=== PATIENT | female | born 1955 | race Caucasian/White ===

== ENCOUNTER 2019-11-18 09:52 | Outpatient (CLI) | payer MEDICARE, OTHER, SELFPAY ==
--- NOTE | 2019-11-18 09:57 | US_ITS ---
WS: [id number] ULTRASOUND RENAL TECHNIQUE: Ultrasound examination of both kidneys. Technically difficult examination due to body habi tus. CLINICAL INFORMATION: Cystitis COMPARISON: None. FINDINGS: RIGHT: Right kidney is normal in size and appearance. Echogenicity: Normal. Cortical thickness: 1.5 cm; Normal. Hydronephrosis: None. Perinephric fluid: None. Right kidney measures: 8.9 cm x 4.2 cm x 4.4 cm. LEFT: Left kidney is normal in size and appearance. Echogenicity: Normal. Cortical thickness: 1.2 cm; Normal. Hydronephrosis: None. Perinephric fluid: None. Left kidney measures: 10.6 cm x 4.8 cm x 5.1 cm. Normal visualized aorta. Mild diffuse bladder wall thickening can be seen with chronic cystitis US/US renal BI* [id number] IMPRESSION: 1. Normal renal ultrasound 2. Mild diffuse bladder wall thickening can be seen with chronic cystitis.
== END 2019-11-18 09:53 | disposition home or self-care (01) ==
LOC: US 09:54
PROVIDERS: PCP Registered Nurse; Visit Provider Nurse Practitioner Family
DX: N30.20 Other chronic cystitis without hematuria (principal)
CPT/HCPCS: 76770; 81001

== ENCOUNTER → 2019-12-02 09:26 | Outpatient (BNVA) | payer MEDICARE, OTHER, SELFPAY | PROVIDERS: PCP Registered Nurse; Referring Provider Registered Nurse; Visit Provider Specialist | DX: G62.9 Polyneuropathy, unspecified (principal); G11.9 Hereditary ataxia, unspecified; I48.0 Paroxysmal atrial fibrillation | CPT/HCPCS: 99204 ==

== ENCOUNTER → 2020-01-05 10:22 | Outpatient (BNVA) | payer MEDICARE, OTHER, SELFPAY | PROVIDERS: PCP Registered Nurse; Visit Provider Urology | DX: N30.20 Other chronic cystitis without hematuria (principal) | CPT/HCPCS: 81001 ==

== ENCOUNTER 2020-02-06 16:43 | Emergency (ER) | payer MEDICARE, OTHER, SELFPAY ==
[2020-02-06 16:48] VITALS: BP 127/75; PULSE 91; RESP 18; TEMP 37.2; O2SAT 94; BMI 41.8
--- NOTE | 2020-02-06 18:06 | XRR_ITS ---
PROCEDURE INFORMATION: Exam: XR Chest, 1 View Exam date and time: 02/06/2020 6:07 PM Age: 64 years old Clinical indication: Dyspnea; Additional info: SOB TECHNIQUE: Imaging protocol: XR of the chest Views: 1 view. COMPARISON: CR Chest 1 [place] [id number] 04/25/2019 5:09 PM FINDINGS: Lungs: Unremarkable. No consolidation. The pulmonary vascularity is within normal limits. Scattered calcified granulomata are noted. Pleural space: Unremarkable. No pleural effusion. No pneumothorax. Heart/Mediastinum: Unremarkable. No cardiomegaly. Bones/joints: No acute abnormality. XR/XR chest 1V portable [id number] IMPRESSION: No acute findings.
--- NOTE | 2020-02-06 18:07 | W.ED.GENADLT ---
HPI - General Adult General: Chief complaint: General Medical Stated complaint: LOW O2 SATS Time Seen by Provider: 02/06/20 17:29 Source: patient Mode of arrival: EMS Limitations: no limitations History of Present Illness: HPI narrative: Patient was brought in by EMS with concerns of hypoxia. She was apparently in her primary care provider's office today and was hypoxic there. I do not have the number for her oxygen saturations. She was therefore brought here to be evaluated. On discussion with the patient she has no complaints. She is not certain why she is here, she says she was told her blood pressure was high. She is saturating in the mid 90s on room air here in the emergency department and her blood pressure is normal at 122/74. She denies chest pain, says she has occasional shortness of breath. She has had repeated falls and she says she has been falling a lot for a long time. Last fall was yesterday. She denies hitting her head and denies losing consciousness. She denies any pain today. Associated symptoms: Deny headache(s), nausea, rash, palpitations or vomiting Review of Systems General: Reports: 10 or more systems reviewed and unremarkable except in HPI and below Const: Denies: fever(s), chills or body aches Eyes: Denies: change in vision or blurry vision ENMT: Denies: throat pain, enlarged tonsils, odynophagia, hoarseness, mouth pain or swelling of lips/tongue Card: Denies: palpitations, irregular heart rhythm, edema or swelling of feet/ankles Resp: Denies: productive cough or non-productive cough GI: Denies: abdominal pain, nausea or vomiting : Denies: flank pain, difficulty voiding, dysuria, urinary frequency, urinary urgency or urinary hesitancy Musc: Denies: neck pain, back pain or extremity swelling Skin/Breast: Denies: rash, pruritus or erythema Neuro: Denies: headache(s), numbness in extremities or weakness in extremities Endo: Denies: polyuria, polydipsia or tired all the time [facility] ED PFSH: Medical History Atrial fibrillation Chronic cystitis COPD (chronic obstructive pulmonary disease) Diabetes History of leukemia HTN (hypertension) Hypercholesteremia Surgical History History of back surgery Hx of appendectomy Hx of cholecystectomy Hx of sinus surgery Hx of total thyroidectomy Family History Mother CAD (coronary artery disease) Social History Smoking and tobacco status: never smoked Alcohol intake: never Adopted: No Caregiver/support person: No Lives independently: No Marital status: / Current occupational status: retired History of recent travel: No Current gender identity: Female Physical Exam Const: COMMON NORMALS: no acute distress, average body habitus, patient oriented x3, no limitations, healthy appearing, alert and well nourished HENMT: COMMON NORMALS: normocephalic, atraumatic and moist oral mucous membranes HEAD & SCALP: normocephalic and atraumatic Neck/C-Spine: COMMON NORMALS: full ROM, supple, no meningeal signs, no JVD and No carotid bruits Chest: COMMONS NORMALS: normal inspection of the chest and normal palpation of entire chest wall Resp: COMMON NORMALS: normal respiratory effort, No retractions, No use of accessory muscles, clear to auscultation bilaterally and percussion normal AUSCULTATION: clear to auscultation bilaterally PERCUSSION: percussion normal Cardio: COMMON NORMALS: no JVD, regular rate, regular rhythm, S1 normal heart sound present, S2 normal heart sound present, No gallops present (Cardio), No clicks present (Cardio), No murmurs present (Cardio), No rub (Cardio) and Peripheral pulses 2+ throughout RATE: regular rate RHYTHM: regular rhythm HEART SOUNDS: S1 normal heart sound present and S2 normal heart sound present PERIPHERAL PULSES: Peripheral pulses 2+ throughout GI: COMMON NORMALS: Normal to inspection, nondistended, normoactive bowel sounds present, Soft to palpation, non-tender, No hepatosplenomegaly present, no masses and no bruits PALPATION: Yes Soft to palpation and Yes No hepatosplenomegaly present Extremity: COMMON NORMALS: normal to inspection, full ROM, capillary refill normal, no calf tenderness and no pedal edema Neuro: COMMON NORMALS: patient oriented x3 SENSORIUM/ORIENTATION: Yes alert MENINGEAL SIGNS: Yes no meningeal signs Skin: COMMON NORMALS: no wounds, turgor normal, no jaundice, no petechiae and no mottling GENERAL SKIN EXAM: turgor normal OTHER: She has multiple bruises on her lower extremity especially in multiple stages of healing. No tenderness to palpation. No obvious bleeding. Course Reevaluation(s): Reevaluation #1: Discussed her lab and imaging findings with her. Nothing acute to straighten up. Chronic kidney disease. Her oxygen saturations have been great throughout her emergency department stay with no desaturation and no oxygen requirements. Respiratory therapy did a walk test on her on the lowest she got was 94% on room air while walking. She will therefore be discharged with no new orders. She voiced understanding and is in agreement with the plan. Time: 20:16 Vital Signs: Vital signs: Vital Signs Temperature 98.9 F 02/06/20 16:48 Pulse Rate 84 02/06/20 20:37 Respiratory Rate 18 02/06/20 20:37 Blood Pressure 146/87 02/06/20 20:37 Pulse Oximetry 96 02/06/20 20:37 MDM - General Adult MDM Narrative: Medical decision making narrative: Patient with hypoxia in her pcp's office. In the ED she was saturating in the mid to high 90's on room air throughout her ED stay. A walk test showed that she did not desaturate on a 5 minute walk test and saturations remained above 92 during the walk. She is discharged home with no new orders Medical Records: Attestation: I reviewed the patient's medical records. Lab Data: Attestation: I reviewed the patient's lab results. Labs: Lab Results 02/06/20 02/06/20 Range/Units 18:31 18:31 WBC 6.3 (4.0-10.0) 10^3/ uL RBC 4.78 (4.1-5.3) 10^6/u L Hgb 12.7 (11.5-15.3) g/dL Hct 42.0 (37.0-47.0) % MCV 87.9 (81-99) fL MCH 26.6 L (28.0-34.0) pg MCHC 30.2 (30.0-36.0) g/dL RDW 17.1 H (12.1-15.1) % Plt Count 281 (130-400) 10^3/c mm MPV 9.2 (7.4-10.4) fL Neut % (Auto) 66.6 % Lymph % (Auto) 21.6 % Hayes % (Auto) 9.8 % Eos % (Auto) 1.1 % Baso % (Auto) 0.6 % Neut # (Auto) 4.21 (1.8-7.7) 10^3/u L Lymph # (Auto) 1.4 (0.8-4.8) 10^3/u L Hayes # (Auto) 0.6 (0.2-0.9) 10^3/u L Eos # (Auto) 0.1 (0.0-0.8) 10^3/u L Baso # (Auto) 0.0 (0.0-0.1) 10^3/u L Nucleated RBC % (a uto) 0 % Nucleated RBCs # 0.0 /100WBC Sodium 136 (136-145) mmol/L Potassium 3.5 (3.5-5.1) mmol/L Chloride 97 L (98-107) mmol/L Carbon Dioxide 28 (22-29) mmol/L Anion Gap 14.5 (5-19) BUN 25 H (8-23) mg/dL Creatinine 1.5 H (0.5-0.9) mg/dL GFR Calculation 35.0 L (90-130) mL/min Glucose 170 H (65-115) mg/dL Calculated Osmolal ity 283 L (285-295) mOsm/k g Calcium 8.5 (8.5-10.5) mg/dL Total Bilirubin 0.3 (0.15-1.2) mg/dL AST 48 H (0-32) U/L ALT 52 H (0-33) U/L Alkaline Phosphata se 138 H (35-105) IU/L Total Protein 7.9 (6.6-8.7) g/dL Albumin 4.0 (3.5-5.2) g/dL Globulin 3.9 (1.3-4.6) g/dL Imaging Data^: CXR: Radiologist's impression: [address] [address] XRay Report Signed Patient: Elizabeth Malik #: [id number] : 6Acct#:[id number] Age/Sex: 64 / FADM Date: 02/06/20 Loc: ERRoom/Bed: Attending Dr: Ordering Provider/Ordering MD: Teo Fong MD, [facility] [place] Date of Service: 02/06/20 Procedure(s): XR chest 1V portable [id number] Accession Number(s): [id number] Report Number: [id number] PROCEDURE INFORMATION: Exam: XR Chest, 1 View Exam date and time: 02/06/2020 6:07 PM Age: 64 years old Clinical indication: Dyspnea; Additional info: SOB TECHNIQUE: Imaging protocol: XR of the chest Views: 1 view. COMPARISON: CR Chest 1 [place] [id number] 04/25/2019 5:09 PM FINDINGS: Lungs: Unremarkable. No consolidation. The pulmonary vascularity is within normal limits. Scattered calcified granulomata are noted. Pleural space: Unremarkable. No pleural effusion. No pneumothorax. Heart/Mediastinum: Unremarkable. No cardiomegaly. Bones/joints: No acute abnormality. XR/XR chest 1V portable [id number] IMPRESSION: No acute findings. Discharge Plan Discharge Patient Disposition: Home Clinical Impression: Worried well, CKD (chronic kidney disease) stage 3, GFR 30-59 ml/min Condition: Stable Prescriptions: Continued duloxetine [Cymbalta] 20 mg capsule,delayed release(DR/EC) 20 mg PO BID Qty: 180 RF: 2 budesonide-formoterol [Symbicort] 160-4.5 mcg/actuation HFA aerosol inhaler 2 puff INHALATION BID RF: 0 Adult Probiotic 3 billion cell capsule 3,000 mmu cells PO DAILY RF: 0 aspirin [Adult Low Dose Aspirin] 81 mg tablet,delayed release (DR/EC) 81 mg PO DAILY RF: 0 Xarelto 20 mg tablet 20 mg PO DAILY RF: 0 atorvastatin 20 mg tablet 20 mg PO DAILY RF: 0 omeprazole 20 mg capsule,delayed release(DR/EC) 20 mg PO BID RF: 0 fluticasone propionate 50 mcg/actuation spray,suspension 2 spray INTRANASAL DAILY PRN (Reason: Nasal Congestion) RF: 0 albuterol sulfate 90 mcg/actuation aero powdr breath act w/sensor 90 mcg INHALATION Q6H PRN (Reason: Shortness Of Breath) RF: 0 metformin 500 mg tablet 500 mg PO DAILY RF: 0 furosemide 20 mg tablet 40 mg PO QAM RF: 0 amitriptyline 25 mg tablet 150 mg PO DAILY RF: 0 nitrofurantoin monohyd/m-cryst [Macrobid] 100 mg capsule 100 mg PO BID Qty: 60 RF: 2 potassium chloride 20 mEq tablet extended release 20 meq PO DAILY Qty: 90 RF: 0 digoxin [Digox] 125 mcg (0.125 mg) tablet 125 mcg PO DAILY Qty: 60 RF: 2 amiodarone 200 mg tablet 200 mg PO DAILY RF: 0 zafirlukast 20 mg Tablet 20 mg PO BID RF: 0 Discharge Orders: Discharge Order (Routine); Ordered 02/06/20 Ordered By: Teo Fong Referrals: Ritu Allan FNP [Primary Care Provider] - 1-3 days Patient Instructions: Chronic Kidney Disease (ED) Activity Restrictions/Additional Instructions: Return for any new or worsening symptoms. Follow-up with your primary care provider within 3 days. 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
[2020-02-06 18:39] LABS: Basophils % 0.6 %; Eosinophils # 0.1 10^3/uL (0.0-0.8); Eosinophils % 1.1 %; Hemoglobin 12.7 g/dL (11.5-15.3); Lymphocytes # 1.4 10^3/uL (0.8-4.8); Lymphocytes % 21.6 %; Mean Corpuscular HGB Conc 30.2 g/dL (30.0-36.0); Mean Corpuscular Hemoglobin 26.6 pg (28.0-34.0); Mean Corpuscular Volume 87.9 fL (81-99); Mean Platelet Volume 9.2 fL (7.4-10.4); Monocytes # 0.6 10^3/uL (0.2-0.9); Monocytes % 9.8 %; Neutrophils # 4.21 10^3/uL (1.8-7.7); Neutrophils % 66.6 %; Nucleated Red Blood Cells % 0 %; Platelet Count 281 10^3/cmm (130-400); Red Blood Count 4.78 10^6/uL (4.1-5.3); Red Cell Distribution Width 17.1 % (12.1-15.1); White Blood Count 6.3 10^3/uL (4.0-10.0)
[2020-02-06 19:03] LABS: Alanine Aminotransferase 52 U/L (0-33); Alkaline Phosphatase 138 IU/L (35-105); Anion Gap 14.5 (5-19); Aspartate Amino Transferase 48 U/L (0-32); Blood Urea Nitrogen 25 mg/dL (8-23); Calcium 8.5 mg/dL (8.5-10.5); Carbon Dioxide 28 mmol/L (22-29); Chloride 97 mmol/L (98-107); Globulin 3.9 g/dL (1.3-4.6); Glucose 170 mg/dL (65-115); Osmolality Calculated 283 mOsm/kg (285-295); Potassium 3.5 mmol/L (3.5-5.1); Sodium 136 mmol/L (136-145); Total Bilirubin 0.3 mg/dL (0.15-1.2); Total Protein 7.9 g/dL (6.6-8.7)
[2020-02-06 19:50] VITALS: O2SAT 94
[2020-02-06 20:37] VITALS: BP 146/87; PULSE 84; RESP 18; O2SAT 96
== END 2020-02-06 20:40 | disposition home or self-care (01) ==
PROVIDERS: Emergency Provider Family Medicine; PCP Registered Nurse
DX: I12.9 Hypertensive chronic kidney disease with stage 1 through stage 4 chronic kidney disease, or unspecified chronic kidney disease (principal); E11.22 Type 2 diabetes mellitus with diabetic chronic kidney disease; N18.3 Chronic kidney disease, stage 3 (moderate); Z79.82 Long term (current) use of aspirin; I48.91 Unspecified atrial fibrillation; J44.9 Chronic obstructive pulmonary disease, unspecified; Z85.6 Personal history of leukemia
CPT/HCPCS: 12345; 71045; 80053; 85025; 99281; 99283

== ENCOUNTER → 2020-03-11 11:05 | Outpatient (BNVA) | payer MEDICARE, OTHER, SELFPAY | PROVIDERS: PCP Registered Nurse; Visit Provider Urology | DX: N30.20 Other chronic cystitis without hematuria (principal) | CPT/HCPCS: 80053; 81001; 87077; 87086; 87186 ==

== ENCOUNTER 2020-03-23 11:48 | Emergency (ER) | payer MEDICARE, OTHER, SELFPAY ==
[2020-03-23 11:48] VITALS: BP 148/92; PULSE 97; RESP 18; TEMP 37.3; O2SAT 96; BMI 43.0
[2020-03-23 11:55] VITALS: BP 148/92; PULSE 119; RESP 18; O2SAT 94
--- NOTE | 2020-03-23 12:13 | ECG_ITS ---
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 Measurements Intervals [place] Rate: 103 P: [place]: -1 QRS: 24 QRSD: 102 T: 62 QT: 355 QTc: 467 Interpretive Statements ATRIAL FIBRILLATION WITH RAPID VENTRICULAR RESPONSE LOW QRS VOLTAGE IN PRECORDIAL LEADS [QRS DEFLECTION < 1.0 mV IN CHEST LEADS] Compared to ECG 04/26/2019 00:04:20 No significant changes Electronically Signed On 03-23-2020 16:26:12 CDT by Pamela Rehman M.D. [id number]
--- NOTE | 2020-03-23 12:14 | CT_ITS ---
WS: [id number] CT HEAD TECHNIQUE: Noncontrast CT of the head obtained from the skullbase to the vertex. CLINICAL INFORMATION: fall, claosed head injury - on xeralto COMPARISON: CT 7 24,019 DLP: 796.[address] scans at [facility] use at least one of these dose optimization techniques: automat ed exposure control; mA and/or kV adjustment per patient size (includes targeted exams where dose is matched to clinical indication); or iterative reconstruction. FINDINGS: No evidence of intracranial hemorrhage or mass effect. Ventricular system and basal cisterns are beasley nt. Moderate small vessel changes with mild parenchymal volume loss. Advanced cerebellar and vermian atrophy. This is unchanged from previous. No extra-axial fluid collections. No evidence of mass or ma ss effect. . Fluid in the right maxillary sinus. Mastoid air cells are well aerated. Several scalp sebaceous cysts . CT/CT head wo con* [id number] IMPRESSION: 1. No evidence of intracranial hemorrhage or mass effect. 2. Unchanged advanced cerebellar and vermian atrophy 3. Fluid within the right maxillary sinus compatible with sinusitis. Notified Philip Del Toro DO at 03/23/2020 12:51 PM.
[2020-03-23 12:46] LABS: Basophils % 0.8 %; Eosinophils # 0.1 10^3/uL (0.0-0.8); Eosinophils % 1.6 %; Hematocrit 39.8 % (37.0-47.0); Hemoglobin 11.8 g/dL (11.5-15.3); Lymphocytes # 0.8 10^3/uL (0.8-4.8); Lymphocytes % 16.6 %; Mean Corpuscular HGB Conc 29.6 g/dL (30.0-36.0); Mean Corpuscular Hemoglobin 26.3 pg (28.0-34.0); Mean Corpuscular Volume 88.8 fL (81-99); Mean Platelet Volume 9.7 fL (7.4-10.4); Monocytes # 0.5 10^3/uL (0.2-0.9); Monocytes % 9.5 %; Neutrophils % 70.9 %; Nucleated Red Blood Cells % 0 %; Platelet Count 299 10^3/cmm (130-400); Red Blood Count 4.48 10^6/uL (4.1-5.3); White Blood Count 5.1 10^3/uL (4.0-10.0)
[2020-03-23 12:54] VITALS: PULSE 100; RESP 19; O2SAT 95
[2020-03-23 13:09] LABS: Alanine Aminotransferase 59 U/L (0-33); Alkaline Phosphatase 144 IU/L (35-105); Anion Gap 15.9 (5-19); Aspartate Amino Transferase 75 U/L (0-32); Blood Urea Nitrogen 22 mg/dL (8-23); Calcium 8.9 mg/dL (8.5-10.5); Carbon Dioxide 24 mmol/L (22-29); Chloride 104 mmol/L (98-107); Globulin 3.4 g/dL (1.3-4.6); Glomerular Filtration Rate 41.2 mL/min (90-130); Glucose 142 mg/dL (65-115); Osmolality Calculated 294 mOsm/kg (285-295); Potassium 4.9 mmol/L (3.5-5.1); Sodium 139 mmol/L (136-145); Total Bilirubin 0.4 mg/dL (0.15-1.2); Total Protein 7.4 g/dL (6.6-8.7)
--- NOTE | 2020-03-23 13:41 | ED_ITS ---
HPI - Fall General: Chief Complaint: Fall Stated Complaint: Fall/Lac Time Seen by Provider: 03/23/20 11:52 History of Present Illness: HPI Narrative: 64-year-old female presents emergency room with complaint of fall. She fell and hit the back of her head she also hit her left elbow she able to move the arm without any difficulty she does have a small stellate laceration over it she has a small knot on the back of her head she denies loss of consciousness she does take Xarelto. She is not had any vomiting or difficulty with breathing. She lives alone and has had several falls recently. Interestingly scheduled for his CT head today to further evaluate this was to be done as an outpatient. She denies any chest pain or palpitations with the episodes of falls. There was no loss of consciousness. MD complaint: fall Onset (ago): minute(s) Fall from: standing Fall witnessed: no Place fall occurred: home Loss of consciousness: None Prolonged down time: no Symptoms prior to fall: lightheadedness and dizziness Context: history of frequent falls Location of injury: head Location of injury - extremities: Left: arm Associated symptoms-after fall: Reports lightheadedness; Denies abdominal pain, chest pain, confusion, difficulty walking, headache(s), hematuria, neck pain, numbness, short of breath, vertigo or weakness Review of Systems Const: Denies: fever(s), chills, body aches, change in appetite, fatigue or malaise ENMT: Denies: throat pain, ear or mastoid pain, nasal discharge or nasal congestion Card: Reports: lightheadedness; Denies: chest pain Resp: Denies: dyspnea, productive cough or non-productive cough GI: Denies: abdominal pain : Denies: hematuria Musc: Denies: neck pain Skin/Breast: Denies: rash or pruritus Neuro: Denies: headache(s), difficulty walking, vertigo or confusion PFSH ED PFSH: Medical History Atrial fibrillation Chronic cystitis COPD (chronic obstructive pulmonary disease) Diabetes History of leukemia HTN (hypertension) Hypercholesteremia Surgical History History of back surgery Hx of appendectomy Hx of cholecystectomy Hx of sinus surgery Hx of total thyroidectomy Family History Mother CAD (coronary artery disease) Social History Smoking and tobacco status: never smoked Alcohol intake: never Adopted: No Caregiver/support person: No Lives independently: No Marital status: / Current occupational status: retired History of recent travel: No Current gender identity: Female Physical Exam Const: COMMON NORMALS: no acute distress GENERAL APPEARANCE: cooperative and comfortable ORIENTATION/CONSCIOUSNESS: Yes awake, Yes oriented to person, Yes oriented to place and Yes oriented to time HENMT: COMMON NORMALS: normocephalic, hearing grossly normal bilaterally, external ears normal, EAC's normal, TM's normal bilaterally, Normal nasal mucous membranes and turbinates present, moist oral mucous membranes and oropharynx normal HEAD & SCALP: normocephalic NOSE: Normal nasal mucous membranes and turbinates present EXTERNAL EAR: Yes external ears normal EXTERNAL AUDITORY CANAL: EAC's normal TYMPANIC MEMBRANE: TM's normal bilaterally Eye: COMMON NORMALS: Equal, round and reactive pupils present, EOMs intact bilaterally, conjunctivae normal and no scleral icterus CONJUNCTIVA: Yes conjunctivae normal PUPIL: Yes Equal, round and reactive pupils present Neck/C-Spine: COMMON NORMALS: full ROM, no lymphadenopathy, supple and no JVD Lymph: LYMPHATIC: no lymphadenopathy noted and no lymphedema noted Resp: COMMON NORMALS: normal respiratory effort, No retractions, No use of accessory muscles and clear to auscultation bilaterally AUSCULTATION: clear to auscultation bilaterally Cardio: COMMON NORMALS: no JVD, regular rate, regular rhythm and No murmurs present (Cardio) RATE: regular rate RHYTHM: regular rhythm GI: COMMON NORMALS: Soft to palpation and No hepatosplenomegaly present AUSCULTATION: Yes normoactive bowel sounds PALPATION: Yes Soft to palpation, No Tenderness to palpation present (GI), No Guarding due to palpation present (GI) and Yes No hepatosplenomegaly present Neuro: SENSORIUM/ORIENTATION: Yes oriented to person, Yes oriented to place and Yes oriented to time Skin: COMMON NORMALS: no rashes or lesions noted GENERAL SKIN EXAM: no rashes or lesions noted Procedures Laceration Laceration 1: Site: upper extremity Side (If applicable): left Size (cm): 2 Description: stellate Depth: simple, single layer Local Anesthetic: lidocaine 1% and with epi Amount of anesthesia used (mL): 3 Size (cm): other (2) Technique: simple, interrupted Course Vital Signs: Vital signs: Vital Signs Temperature 99.2 F 03/23/20 11:48 Pulse Rate 70 03/23/20 13:53 Respiratory Rate 15 03/23/20 13:53 Blood Pressure 160/80 03/23/20 13:53 Pulse Oximetry 95 03/23/20 13:53 MDM - Fall MDM Narrative: Medical decision making narrative: Imaging negative. Laceration repaired. Labs reviewed. We will go ahead and discharge patient home for further work-up for her episodes of falling through outpatient. Lab Data: Labs: Lab Results 03/23/20 03/23/20 Range/Units 12:33 12:33 WBC 5.1 (4.0-10.0) 10^3/ uL RBC 4.48 (4.1-5.3) 10^6/u L Hgb 11.8 (11.5-15.3) g/dL Hct 39.8 (37.0-47.0) % MCV 88.8 (81-99) fL MCH 26.3 L (28.0-34.0) pg MCHC 29.6 L (30.0-36.0) g/dL RDW 18.0 H (12.1-15.1) % Plt Count 299 (130-400) 10^3/c mm MPV 9.7 (7.4-10.4) fL Neut % (Auto) 70.9 % Lymph % (Auto) 16.6 % Mineral % (Auto) 9.5 % Eos % (Auto) 1.6 % Baso % (Auto) 0.8 % Neut # (Auto) 3.60 (1.8-7.7) 10^3/u L Lymph # (Auto) 0.8 (0.8-4.8) 10^3/u L Mineral # (Auto) 0.5 (0.2-0.9) 10^3/u L Eos # (Auto) 0.1 (0.0-0.8) 10^3/u L Baso # (Auto) 0.0 (0.0-0.1) 10^3/u L Nucleated RBC % (a uto) 0 % Nucleated RBCs # 0.0 /100WBC Sodium 139 (136-145) mmol/L Potassium 4.9 (3.5-5.1) mmol/L Chloride 104 (98-107) mmol/L Carbon Dioxide 24 (22-29) mmol/L Anion Gap 15.9 (5-19) BUN 22 (8-23) mg/dL Creatinine 1.3 H (0.5-0.9) mg/dL GFR Calculation 41.2 L (90-130) mL/min Glucose 142 H (65-115) mg/dL Calculated Osmolal ity 294 (285-295) mOsm/k g Calcium 8.9 (8.5-10.5) mg/dL Total Bilirubin 0.4 (0.15-1.2) mg/dL AST 75 H (0-32) U/L ALT 59 H (0-33) U/L Alkaline Phosphata se 144 H (35-105) IU/L Total Protein 7.4 (6.6-8.7) g/dL Albumin 4.0 (3.5-5.2) g/dL Globulin 3.4 (1.3-4.6) g/dL Discharge Plan Discharge Patient Disposition: Home Clinical Impression: Fall, Laceration of elbow, left Condition: Stable Prescriptions: No Action duloxetine [Cymbalta] 20 mg capsule,delayed release(DR/EC) 20 mg PO BID Qty: 180 RF: 2 sulfamethoxazole-trimethoprim 800-160 mg tablet 1 tab PO BID Qty: 60 RF: 2 budesonide-formoterol [Symbicort] 160-4.5 mcg/actuation HFA aerosol inhaler 2 puff INHALATION BID RF: 0 Adult Probiotic 3 billion cell capsule 3,000 mmu cells PO DAILY RF: 0 aspirin [Adult Low Dose Aspirin] 81 mg tablet,delayed release (DR/EC) 81 mg PO DAILY RF: 0 Xarelto 20 mg tablet 20 mg PO DAILY RF: 0 atorvastatin 20 mg tablet 20 mg PO DAILY RF: 0 omeprazole 20 mg capsule,delayed release(DR/EC) 20 mg PO BID RF: 0 fluticasone propionate 50 mcg/actuation spray,suspension 2 spray INTRANASAL DAILY PRN (Reason: Nasal Congestion) RF: 0 albuterol sulfate 90 mcg/actuation aero powdr breath act w/sensor 90 mcg INHALATION Q6H PRN (Reason: Shortness Of Breath) RF: 0 metformin 500 mg tablet 500 mg PO DAILY RF: 0 furosemide 20 mg tablet 40 mg PO QAM RF: 0 amitriptyline 25 mg tablet 150 mg PO DAILY RF: 0 potassium chloride 20 mEq tablet extended release 20 meq PO DAILY Qty: 90 RF: 0 digoxin [Digox] 125 mcg (0.125 mg) tablet 125 mcg PO DAILY Qty: 60 RF: 2 amiodarone 200 mg tablet 200 mg PO DAILY RF: 0 zafirlukast 20 mg Tablet 20 mg PO BID RF: 0 Discharge Orders: Discharge Order (Routine); Ordered 03/23/20 Ordered By: Philip Del Toro Referrals: Ritu Allan FNP [Primary Care Provider] - Discharge Diet: Usual diet Discharge Activity: Increase activity as tolerated Activity Restrictions/Additional Instructions: Change wound and put topical [id number] antibiotic ointment on once daily sutures out in 10 days. 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
[2020-03-23 13:53] VITALS: BP 160/80; PULSE 70; RESP 15; O2SAT 95
== END 2020-03-23 13:54 | disposition home or self-care (01) ==
PROVIDERS: Emergency Provider Family Medicine; PCP Registered Nurse
DX: S51.012A Laceration without foreign body of left elbow, initial encounter (principal); Z79.82 Long term (current) use of aspirin; Z79.84 Long term (current) use of oral hypoglycemic drugs; I48.91 Unspecified atrial fibrillation; J44.9 Chronic obstructive pulmonary disease, unspecified; E11.9 Type 2 diabetes mellitus without complications; I10 Essential (primary) hypertension; Z85.6 Personal history of leukemia; W19.XXXA Unspecified fall, initial encounter
CPT/HCPCS: 12001; 12345; 70450; 80053; 85025; 93005; 99282; 99283

== ENCOUNTER 2020-04-13 15:50 | Outpatient (CLI) | payer MEDICARE, OTHER, SELFPAY ==
--- NOTE | 2020-04-13 16:21 | MR_ITS ---
WS: [id number] MRI HEAD WITHOUT CONTRAST TECHNIQUE: Sagittal T1, T2 axial, T2 axial FLAIR, axial and coronal T1 images, axial susceptibility w eighted imaging, axial diffusion weighted images, and coronal T2 images were obtained. CLINICAL INFORMATION: FOCAL NEUROLOGICAL DEFICIT/ DIFFICULTY WITH SPEECH COMPARISON: CT March 23, 2020 FINDINGS: No evidence of restricted diffusion to suggest acute ischemia. Ventricular system and basal cisterns are patent. Moderate small vessel changes with mild hemispheric parenchymal volume loss. Small vessel changes in the brennon. Advanced asymmetric atrophy involving the cerebellum and cerebellar vermis. Mil d mucosal thickening right mastoid air cells. Moderate mucosal thickening right maxillary sinus. Normal vascular flow voids at the skull base. No extra-axial fluid collections. No hemosiderin on the susceptibly weighted images. Normal optic chiasm and pituitary infundibulum. Temporal lobes and hippocampal formations are normal in appearance. Normal cavernous sinuses and Meckel's cave. Incidental sebaceous cysts in the scalp. MR/MR head wo con* [id number] IMPRESSION: 1. No evidence of restricted diffusion to suggest acute ischemia. 2. Moderate small vessel changes with mild hemispheric parenchymal volume loss . 3. Unchanged advanced asymmetric cerebellar and vermian atrophy. This is simil ar in appearance dating back to 2009. 4. Mucosal thickening right maxillary sinus and Mastoid air cells. 5. Mild symmetric atrophy involving the temporal lobes and hippocampal formati ons. No asymmetric hippocampal atrophy.
== END 2020-04-13 15:51 | disposition home or self-care (01) ==
LOC: RADSHAW 15:54
PROVIDERS: PCP Family Medicine; Visit Provider Family Medicine
DX: R29.818 Other symptoms and signs involving the nervous system (principal); R47.9 Unspecified speech disturbances; G31.9 Degenerative disease of nervous system, unspecified
CPT/HCPCS: 70551

== ENCOUNTER → 2020-04-21 13:49 | Outpatient (BNVA) | payer MEDICARE, OTHER, SELFPAY | PROVIDERS: PCP Family Medicine; Visit Provider Specialist | DX: G62.9 Polyneuropathy, unspecified (principal); G11.9 Hereditary ataxia, unspecified; G31.84 Mild cognitive impairment of uncertain or unknown etiology | CPT/HCPCS: 99214 ==

== ENCOUNTER → 2020-04-28 15:40 | Outpatient (BNVA) | payer MEDICARE, OTHER, SELFPAY | PROVIDERS: PCP Family Medicine; Visit Provider Urology | DX: N30.20 Other chronic cystitis without hematuria (principal) | CPT/HCPCS: 81003 ==

== ENCOUNTER 2020-06-03 09:47 | Outpatient (CLI) | payer MEDICARE, OTHER, SELFPAY ==
--- NOTE | 2020-06-03 09:56 | USCV_ITS ---
Elizabeth Malik Age: 64 Gender: F : 1955 Exam Date: 06/03/2020 10:18 Ordering Phys: Sherron Guerrero Technologist: Sherrie Hidalgo [place]am [place] [facility] [place] Indication: right leg pain w/swelling. Freq falls, amelia's sign present HISTORY: Lower extremity swelling. Lower extremity pain. PROCEDURES: Venous duplex imaging was performed in only the right lower extremity. The following venous structures were evaluated: common femoral vein, profunda vein, proximal portion of the greater saphenous vein, superficial femoral vein, and the popliteal vein. In addition, the posterior tibial veins were evaluated. In addition, the posterior tibial and peroneal trunk were evaluated. FINDINGS: No evidence of DVT seen in any vessel visualized at this time. Fluid seen in right pop fossa CONCLUSIONS No evidence of right lower extremity DVT. Small amount of fluid/ edema in the popliteal fossa. Craig Benedict MD (Electronically Signed) Final Date: 03 June 2020 14:20 S
== END 2020-06-03 09:48 | disposition home or self-care (01) ==
LOC: RAD 09:50
PROVIDERS: PCP Family Medicine; Visit Provider Registered Nurse
DX: M79.604 Pain in right leg (principal); M79.89 Other specified soft tissue disorders; R29.6 Repeated falls; R09.89 Other specified symptoms and signs involving the circulatory and respiratory systems; R60.0 Localized edema
CPT/HCPCS: 93971

== ENCOUNTER 2020-06-22 12:22 | Outpatient (CLI) | payer MEDICARE, OTHER, SELFPAY ==
--- NOTE | 2020-06-22 | USCV_ITS ---
Elizabeth Malik Age: 64 Gender: F : 1955 Exam Date: 06/22/2020 12:57 Ordering Phys: Sherron Guerrero Technologist: Rubén Mireles Exam Location: [facility] [place] Indication: ?PAD/PAIN OF RIGHT LOWER EXT/FREQ FALLS RIGHT LEFT Brachial 182.00 mmHg Brachial 156.00 mmHg Pressure (mmHg) Waveform Pressure (mmHg) Waveform 158.00 Below Knee 196.00 180.00 DEVELOPMENT TECHNICAL LEAD 202.00 183.00 DPA 160.00 1.01 Ankle/Brachial Index 0.88 132.00 Pre-Exercise Toe Pressure 121.00 0.73 Pre-Exercise Toe/Brachial Index 0.66 FINDINGS BILAT THIGH PRESSURES >200 COULD NOT CALCULATE Normal resting CASSIE and TBI on the right side Slightly diminished resting CASSIE and TBI on the left side CONCLUSIONS 1. Features of mild peripheral artery disease on the left side 2. No significant arterial obstruction on the right side No similar previous studies are available for comparison Dr Akilah Helms MD [facility] Edited by: DAHIANA Branch Lead (Electronically Signed) Final Date: 22 June 2020 17:50 Amended: 23 June 2020 07:33 C
== END 2020-06-22 12:23 | disposition home or self-care (01) ==
LOC: RAD 12:35
PROVIDERS: PCP Family Medicine; Visit Provider Registered Nurse
DX: M79.604 Pain in right leg (principal); R29.6 Repeated falls; R23.3 Spontaneous ecchymoses
CPT/HCPCS: 93923

== ENCOUNTER → 2020-06-23 12:12 | Outpatient (BNVA) | payer MEDICARE, OTHER, SELFPAY | PROVIDERS: PCP Family Medicine; Visit Provider Internal Medicine Cardiovascular Disease | DX: I10 Essential (primary) hypertension (principal); I48.0 Paroxysmal atrial fibrillation | CPT/HCPCS: 80053; 80162 ==

== ENCOUNTER → 2020-09-22 11:37 | Outpatient (BNVA) | payer MEDICARE, OTHER, SELFPAY | PROVIDERS: PCP Family Medicine; Visit Provider Specialist | DX: G62.9 Polyneuropathy, unspecified (principal); G11.9 Hereditary ataxia, unspecified; G31.84 Mild cognitive impairment of uncertain or unknown etiology | CPT/HCPCS: 99213 ==

== ENCOUNTER 2020-12-21 14:04 | Emergency (ER) | payer MEDICARE, OTHER, SELFPAY ==
[2020-12-21 14:26] VITALS: BP 144/80; PULSE 100; RESP 16; TEMP 37.2; O2SAT 96; BMI 36.0
--- NOTE | 2020-12-21 14:50 | ED_ITS ---
HPI - Fall General: Chief Complaint: Fall Stated Complaint: fall, shoulder pain Time Seen by Provider: 12/21/20 14:38 History of Present Illness: HPI Narrative: Patient is a 65-year-old female comes to the ED after having a fall. Patient says fall occurred on Sunday. She reports losing her balance and falling down on her left side. She endorses hitting her head on the ground but no loss of consciousness. She states she does have some left-sided neck pain. Her main complaint is left shoulder pain since fall. Now she has limited range of motion in her left arm due to pain. She also describes having some left elbow pain as well. Patient is on a blood thinner and takes Tylenol for pain. Denies any neurological symptoms. Associated symptoms-after fall: Reports neck pain; Denies abdominal pain, chest pain, headache(s) or hematuria Review of Systems Const: Denies: fever(s), chills or fatigue Eyes: Denies: change in vision or eye discomfort ENMT: Denies: throat pain, odynophagia, nasal discharge or nasal congestion Card: Denies: chest pain, palpitations, edema, swelling of feet/ankles, dyspnea on exertion or orthopnea Resp: Denies: dyspnea, productive cough or non-productive cough GI: Denies: abdominal pain, nausea, vomiting, diarrhea, constipation or hematochezia : Denies: flank pain, dysuria or hematuria Musc: Reports: neck pain and extremity pain (left shoulder and left elbow); Denies: back pain or extremity swelling Skin/Breast: Denies: rash or new lesions Neuro: Denies: headache(s), numbness in extremities or weakness in extremities [facility] ED PFSH: Medical History Atrial fibrillation Chronic cystitis COPD (chronic obstructive pulmonary disease) Diabetes History of leukemia HTN (hypertension) Hypercholesteremia Surgical History History of back surgery Hx of appendectomy Hx of cholecystectomy Hx of sinus surgery Hx of total thyroidectomy Family History Mother CAD (coronary artery disease) Social History Smoking and tobacco status: never smoked Alcohol intake: never Marital status: / Current occupational status: retired History of recent travel: No Physical Exam Const: COMMON NORMALS: no acute distress, patient oriented x3 and alert GENERAL APPEARANCE: cooperative and comfortable HENMT: COMMON NORMALS: normocephalic HEAD & SCALP: normocephalic MOUTH: Normal oral and palatal mucosa present THROAT: posterior oropharynx normal and uvula midline Eye: COMMON NORMALS: Equal, round and reactive pupils present and EOMs intact bilaterally PUPIL: Yes Equal, round and reactive pupils present Neck/C-Spine: COMMON NORMALS: supple GENERAL: Yes normal visual inspection CERVICAL SPINE: Yes cervical ROM normal, Yes Paracervical muscle tenderness left and Yes Trapezius muscle tenderness left Resp: COMMON NORMALS: normal respiratory effort, No retractions, No use of accessory muscles and clear to auscultation bilaterally AUSCULTATION: clear to auscultation bilaterally Cardio: COMMON NORMALS: regular rate, regular rhythm, S1 normal heart sound present, S2 normal heart sound present, No gallops present (Cardio), No clicks present (Cardio), No murmurs present (Cardio) and Peripheral pulses 2+ throughout RATE: regular rate RHYTHM: regular rhythm HEART SOUNDS: S1 normal heart sound present and S2 normal heart sound present PERIPHERAL PULSES: Peripheral pulses 2+ throughout GI: COMMON NORMALS: Normal to inspection, nondistended, normoactive bowel sounds present, Soft to palpation, non-tender and no masses PALPATION: Yes Soft to palpation : COMMON NORMALS: Yes no CVA tenderness BLADDER/KIDNEY EXAM: Yes no CVA tenderness Back/Pelvis: COMMON NORMALS: no CVA tenderness Extremity: LEFT UPPER EXTREMITY: Yes shoulder joint Left shoulder joint: Yes inspection (No visible deformity noted.), Yes palpation (Tenderness over the humeral head region of shoulder), Yes ROM (Limited range of motion especially ab duction) and Yes neurovascular exam (Intact) Neuro: COMMON NORMALS: patient oriented x3, CN's II-XII intact bilaterally, m oves all extremities, no focal motor deficits and no sensory deficits noted SENSORIUM/ORIENTATION: Yes alert SPEECH: speech normal Skin: GENERAL SKIN EXAM: dry skin Course Vital Signs: Vital signs: Vital Signs Temperature 98.9 F 12/21/20 14:26 Pulse Rate 80 12/21/20 16:16 Respiratory Rate 18 12/21/20 16:16 Blood Pressure 156/104 12/21/20 16:16 Pulse Oximetry 96 12/21/20 16:16 MDM - Fall MDM Narrative: Medical decision making narrative: pt had a fall and now has neck pain, left shoulder pain and left elbow pain. pt is on blood thinner and she reports hitting her head but did not have LOC. pt's neuro exam is benign. she has limited ROM in left shoulder due to pain. NV intact. XR of elbow and shoulder showed no acute fracture or finding. CT of head and CT cervical spine show no acute findings. pt diagnosed with left shoulder pain, left side neck pain after fall. she was dc with a shoulder sling and told to follow up with pcp in 7-10 days for reevaluation. return to ed precautions given. pt understood and agreed with plan. Imaging Data^: CT Head: Attestation: I personally reviewed and interpreted this imaging study as foll ows: Radiologist's impression: [address] [address] [address] Scan Report Signed Patient: Elizabeth Malik Unit #: [id number] : 1955 Age/Sex: 65 / F ADM Date: 12/21/20 Loc: ER Room/Bed: Attending Dr: Ordering Provider/Ordering MD: Juanjose Daly Date of Service: 12/21/20 Procedure(s): CT head wo con* [id number] Accession Number(s): [id number] Report Number: [id number] PROCEDURE INFORMATION: Exam: CT Head Without Contrast Exam date and time: 12/21/2020 2:57 PM Age: 65 years old Clinical indication: Injury or trauma; Fall; Blunt trauma (contusions or hematomas); Injury date: 10 days ago; Additional info: Fall and hit head. PT on blood thinners TECHNIQUE: Imaging protocol: Computed tomography of the head without contrast. Radiation optimization: All CT scans at this facility use at least one of these dose optimization techniques: automated exposure control; mA and/or kV adjustment per patient size (includes targeted exams where dose is matched to clinical indication); or iterative reconstruction. COMPARISON: MR head wo con* [id number] 04/13/2020 4:[address] head without contrast 03/23/2020 RADIATION DOSE METRICS: Total DLP (mGy-cm): 766.39 FINDINGS: Brain: No hemorrhage. Moderate diffuse cerebral atrophy with areas of focal low attenuation within the subcortical and deep white matter tracts consistent with chronic small vessel ischemic disease. No mass effect. Redemonstrated findings of advanced cerebellar and vermian atrophy, similar in appearance to previous examinations. Cerebral ventricles: No ventriculomegaly. Paranasal sinuses: Air-fluid level at the right maxillary sinus. The rest of the paranasal sinuses appear well pneumatized. Mastoid air cells: Visualized mastoid air cells are well aerated. Bones/joints: Unremarkable. No acute fracture. Soft tissues: Appearance of several sebaceous cysts within the subcutaneous tissues predominantly within the left posterolateral scalp. CT/CT head wo con* [id number] IMPRESSION: 1. Stable exam, no acute intracranial abnormality. 2. Right maxillary sinusitis. Radiation Dose CTDIVOL = (mGy): DLP = 766.39 (mGy-cm) Dictated By: Familia Mi DO Signed By: Familia Mi DO Signed Date/Time: 12/21/20 1611 DD/ [address]: Attestation: I personally reviewed and interpreted this imaging study as follows: Radiologist's impression: [address] Find Patient RAD - Elizabeth Malik 65 F 1955 ACTIVITY DATE EXAM STATUS AUTHOR 12/21/20 14:57 Signed Familia Mi 12/21/20 14:57 Signed Denise Garcia 12/21/20 14:57 Signed Familia Mi 12/21/20 14:57 Signed Denise Garcia [address] [id number] Scan ReportSigned Patient: Elizabeth Malik EUnit #: [id number]: [id number]#:[id number]/Sex: 65 / FADM Date: 12/21/20Loc: ERRoom/Bed:Attending Dr: Ordering Provider/Ordering MD: Juanjose Daly Date of Service: 12/21/20 Procedure(s): CT cervical spin wo con* [id number] Accession Number(s): [id number] Report Number: [id number] PROCEDURE INFORMATION: Exam: CT Cervical Spine Without Contrast Exam date and time: 12/21/2020 2:57 PM Age: 65 years old Clinical indication: Injury or trauma; Fall; Blunt trauma; Injury date: 10 days ago; Additional info: Fall and hit head, neck pain TECHNIQUE: Imaging protocol: Computed tomography images of the cervical spine without contrast. Radiation optimization: All CT scans at this facility use at least one of these dose optimization techniques: automated exposure control; mA and/or kV adjustment per patient size (includes targeted exams where dose is matched to clinical indication); or iterative reconstruction. COMPARISON: MR head wo con* [id number] 04/13/2020 4:36 PM RADIATION DOSE METRICS: Total DLP (mGy-cm): 762.82 FINDINGS: Bones/joints: No acute fracture with normal alignment of the cervical spine. Mild to moderate facet arthropathy asymmetrically pronounced within the left C3 through C6 levels. Uncovertebral hypertrophy noted at C5-C6 and C6-C7. Discs/Spinal canal/Neural foramina: See Bones/joints finding. Thyroid: Sequela of left hemithyroidectomy. Lungs: Lung apices are normal. Soft tissues: Unremarkable. CT/CT cervical spin wo con* [id number] IMPRESSION: No acute osseous abnormalities of the cervical spine. Radiation Dose CTDIVOL = (mGy): DLP = 762.82 (mGy-cm) Dictated By:Familia Mi DOSigned By:Familia Mi DOSigned Date/Time:12/21/20 1614DD/ 1613 Xray Ortho: Attestation: I personally reviewed and interpreted this imaging study as follows: Radiologist's impression: Elizabeth Malik 65 F [address] [id number] ReportSigned Patient: Pao Maliklotte NEELginarobina #: [id number]: 1955cct#:[id number]/Sex: 65 / FADM Date: 12/21/20Loc: ERRoom/ Bed:Attending Dr: Ordering Provider/Ordering MD: Juanjose Daly Date of Service: 12/21/20 Procedure(s): XR elbow LT min 3V* [id number] Accession Number(s): [id number] Report Number: [id number] WS: [id number] LEFT ELBOW: 3 VIEW(S) TECHNIQUE: AP, oblique and lateral. HISTORY: left elbow pain after fall COMPARISON: None available. No acute fractures or dislocation. No joint effusion. Small calcific or osseous densities over the lateral humeral epicondyle. Probably from prior epicondylitis. XR/XR elbow LT min 3V* [id number] IMPRESSION: No acute LEFT elbow fracture. Dictated By:Denise Garcia DOSigned By:Denise Garcia DOSigned Date/Time:12/21/20 152DD/ [address] [id number] ReportSigned Patient: Elizabeth Malik #: [id number]: 1955cct#:[id number]/Sex: 65 / FADM Date: 12/21/20Loc: ERRoom/Bed:Attending Dr: Ordering Provider/Ordering MD: Juanjose Daly Date of Service: 12/21/20 Procedure(s): XR shoulder LT min 2V* [id number] Accession Number(s): [id number] Report Number: [id number] WS: [id number] LEFT SHOULDER: 3 VIEW(S) TECHNIQUE: Internal and external rotation with Y view. HISTORY: left shoulder pain after fall COMPARISON: None available. No fracture identified. Mild narrowing of the AC joint. No dislocation. Glenohumeral and AC joints are unremarkable. XR/XR shoulder LT min 2V* [id number] IMPRESSION: Mild degenerative changes at the AC joint. No fracture seen radiographically. Dictated By:Denise Garcia DOSigned By:Dneise Garcia DOSigned Date/Time:12/21/20 1527DD/ 152 Discharge Plan Discharge Patient Disposition: Home Clinical Impression: Neck pain on left side Fall as cause of accidental injury at home as place of occurrence Qualifiers: Encounter type: initial encounter Qualified Code(s): W19.XXXA - Unspecified fall, initial encounter Left shoulder pain Qualifiers: Chronicity: acute Qualified Code(s): M25.512 - Pain in left shoulder Condition: Stable Prescriptions: New cyclobenzaprine 5 mg tablet 5 mg PO BID PRN (Reason: muscle spasm) Qty: 20 RF: 0 No Action duloxetine [Cymbalta] 20 mg capsule,delayed release(DR/EC) 20 mg PO BID Qty: 180 RF: 2 tramadol 50 mg tablet 100 mg PO TID PRNRF: 0 digoxin [Digox] 125 mcg (0.125 mg) tablet 62.5 mcg PO DAILY RF: 0 metoprolol succinate 25 mg tablet extended release 24 hr 25 mg PO DAILY Qty: 90 RF: 1 potassium chloride 20 mEq tablet extended release 10 meq PO DAILY PRNRF: 0 levothyroxine [Synthroid] 112 mcg tablet 112 mcg PO DAILY RF: 0 budesonide-formoterol [Symbicort] 160-4.5 mcg/actuation HFA aerosol inhaler 2 puff INHALATION BID RF: 0 Adult Probiotic 3 billion cell capsule 3,000 mmu cells PO DAILY RF: 0 aspirin [Adult Low Dose Aspirin] 81 mg tablet,delayed release (DR/EC) 81 mg PO DAILY RF: 0 Xarelto 20 mg tablet 20 mg PO DAILY RF: 0 atorvastatin 20 mg tablet 20 mg PO DAILY RF: 0 omeprazole 20 mg capsule,delayed release(DR/EC) 20 mg PO BID RF: 0 fluticasone propionate 50 mcg/actuation spray,suspension 2 spray INTRANASAL DAILY PRN (Reason: Nasal Congestion) RF: 0 albuterol sulfate 90 mcg/actuation aero powdr breath act w/sensor 90 mcg INHALATION Q6H PRN (Reason: Shortness Of Breath) RF: 0 metformin 500 mg tablet 500 mg PO DAILY RF: 0 furosemide 20 mg tablet 40 mg PO QAM PRNRF: 0 mirtazapine 15 mg tablet 15 mg PO DAILY RF: 0 DME: [facility] 1 ea .Route DAILY Qty: 1 RF: 0 zafirlukast 20 mg Tablet 20 mg PO BID RF: 0 Discharge Orders: Discharge ED (Routine); Ordered 12/21/20 Ordered By: Juanjose Daly Referrals: Poonam Cavazos DO [Primary Care Provider] - Discharge Diet: Regular Discharge Activity: Increase activity as tolerated Patient Instructions: Fall Prevention (ED) Activity Restrictions/Additional Instructions: Follow-up with medical provider as directed in 5-7 days for reevaluation. Continue taking all home medications as previously prescribed. Take vsvt-jny-nvadcil Tylenol for any pain. Return to the ER or your medical provider if condition worsens. Please read and understand discharge instructions. Thank you for choosing [facility] for your healthcare needs today. Please realize this is an emergency room and that we are providing you with a medical screening exam and this may not be complete and all inclusive of all the testing and or work up that you may need to determine your ailment or severity of your illness. It is very important that you follow up as instructed or that you return to the Emergency Department should you have concerns or if your condition changes or worsens in any way. Coding Level of Care Code ED [employer] for Anselmo Rodgers Exam Comprehensive
--- NOTE | 2020-12-21 14:57 | CTR_ITS ---
PROCEDURE INFORMATION: Exam: CT Head Without Contrast Exam date and time: 12/21/2020 2:57 PM Age: 65 years old Clinical indication: Injury or trauma; Fall; Blunt trauma (contusions or hematomas); Injury date: 10 days ago; Additional info: Fall and hit head. PT on blood thinners TECHNIQUE: Imaging protocol: Computed tomography of the head without contrast. Radiation optimization: All CT scans at this facility use at least one of these dose optimization techniques: automated exposure control; mA and/or kV adjustment per patient size (includes targeted exams where dose is matched to clinical indication); or iterative reconstruction. COMPARISON: MR head wo con* [id number] 04/13/2020 4:[address] head without contrast 03/23/2020 RADIATION DOSE METRICS: Total DLP (mGy-cm): 766.39 FINDINGS: Brain: No hemorrhage. Moderate diffuse cerebral atrophy with areas of focal low attenuation within the subcortical and deep white matter tracts consistent with chronic small vessel ischemic disease. No mass effect. Redemonstrated findings of advanced cerebellar and vermian atrophy, similar in appearance to previous examinations. Cerebral ventricles: No ventriculomegaly. Paranasal sinuses: Air-fluid level at the right maxillary sinus. The rest of the paranasal sinuses appear well pneumatized. Mastoid air cells: Visualized mastoid air cells are well aerated. Bones/joints: Unremarkable. No acute fracture. Soft tissues: Appearance of several sebaceous cysts within the subcutaneous tissues predominantly within the left posterolateral scalp. CT/CT head wo con* [id number] IMPRESSION: 1. Stable exam, no acute intracranial abnormality. 2. Right maxillary sinusitis. Radiation Dose CTDIVOL = (mGy): DLP = 766.39 (mGy-cm)
--- NOTE | 2020-12-21 14:57 | CTR_ITS ---
PROCEDURE INFORMATION: Exam: CT Cervical Spine Without Contrast Exam date and time: 12/21/2020 2:57 PM Age: 65 years old Clinical indication: Injury or trauma; Fall; Blunt trauma; Injury date: 10 days ago; Additional info: Fall and hit head, neck pain TECHNIQUE: Imaging protocol: Computed tomography images of the cervical spine without contrast. Radiation optimization: All CT scans at this facility use at least one of these dose optimization techniques: automated exposure control; mA and/or kV adjustment per patient size (includes targeted exams where dose is matched to clinical indication); or iterative reconstruction. COMPARISON: MR head wo con* [id number] 04/13/2020 4:36 PM RADIATION DOSE METRICS: Total DLP (mGy-cm): 762.82 FINDINGS: Bones/joints: No acute fracture with normal alignment of the cervical spine. Mild to moderate facet arthropathy asymmetrically pronounced within the left C3 through C6 levels. Uncovertebral hypertrophy noted at C5-C6 and C6-C7. Discs/Spinal canal/Neural foramina: See Bones/joints finding. Thyroid: Sequela of left hemithyroidectomy. Lungs: Lung apices are normal. Soft tissues: Unremarkable. CT/CT cervical spin wo con* [id number] IMPRESSION: No acute osseous abnormalities of the cervical spine. Radiation Dose CTDIVOL = (mGy): DLP = 762.82 (mGy-cm)
--- NOTE | 2020-12-21 14:57 | XR_ITS ---
WS: [id number] LEFT SHOULDER: 3 VIEW(S) TECHNIQUE: Internal and external rotation with Y view. HISTORY: left shoulder pain after fall COMPARISON: None available. No fracture identified. Mild narrowing of the AC joint. No dislocation. Glenohumeral and AC joints are unremarkable. XR/XR shoulder LT min 2V* [id number] IMPRESSION: Mild degenerative changes at the AC joint. No fracture seen radiographically.
--- NOTE | 2020-12-21 14:57 | XR_ITS ---
WS: [id number] LEFT ELBOW: 3 VIEW(S) TECHNIQUE: AP, oblique and lateral. HISTORY: left elbow pain after fall COMPARISON: None available. No acute fractures or dislocation. No joint effusion. Small calcific or osseous densities over the lateral humeral epicondyle. Probably from prior epicondy litis. XR/XR elbow LT min 3V* [id number] IMPRESSION: No acute LEFT elbow fracture.
[2020-12-21] MEDS: acetaminophen 325 mg Tablet 650 MG PO (15:05)
[2020-12-21 16:16] VITALS: BP 156/104; PULSE 80; RESP 18; O2SAT 96
== END 2020-12-21 16:31 | disposition home or self-care (01) ==
PROVIDERS: Emergency Provider Physician Assistant; PCP Family Medicine
DX: M25.512 Pain in left shoulder (principal); M25.522 Pain in left elbow; I48.91 Unspecified atrial fibrillation; J44.9 Chronic obstructive pulmonary disease, unspecified; E11.9 Type 2 diabetes mellitus without complications; I10 Essential (primary) hypertension; E78.00 Pure hypercholesterolemia, unspecified; Z79.01 Long term (current) use of anticoagulants; Z79.84 Long term (current) use of oral hypoglycemic drugs
CPT/HCPCS: 70450; 72125; 73030; 73080; 99283

== ENCOUNTER 2021-05-24 08:26 | Outpatient (CLI) | payer MEDICARE, OTHER, SELFPAY ==
--- NOTE | 2021-05-24 08:37 | MM_ITS ---
WS: [id number] BILATERAL DIGITAL SCREENING MAMMOGRAPHY WITH CAD CLINICAL INFORMATION: SCREENING HISTORY: Screening mammogram. No current complaints. COMPARISON: December 02, 2018 TECHNIQUE: Bilateral CC and MLO views. FINDINGS: Scattered fibroglandular densities bilaterally. Increasing asymmetric density upper outer left breast best seen on the cc view measuring 8 mm. This is increased from previous. Recommend left diagnostic mammography and ultrasound for further evaluation. Punctate and lucent centered calcifications Right breast is unremarkable and unchanged. MM/[place] [id number] IMPRESSION: BI-RADS: 0-Incomplete: Need additional imaging evaluation FOLLOW UP: Need Additional Imaging RECOMMEND LEFT DIAGNOSTIC MAMMOGRAPHY AND ULTRASOUND FOR FURTHER EVALUATION
== END 2021-05-24 08:27 | disposition home or self-care (01) ==
LOC: RADSHAW 08:36
PROVIDERS: PCP Family Medicine; Visit Provider Family Medicine
DX: Z12.31 Encounter for screening mammogram for malignant neoplasm of breast (principal)
CPT/HCPCS: 77067

== ENCOUNTER 2021-05-30 12:09 | Observation (INO) | payer MEDICARE, OTHER, SELFPAY ==
[2021-05-30] VITALS (12 sets, daily range): BP systolic 104–179; BP diastolic 66–130; PULSE 76–128; RESP 21–33; TEMP 36.6–37.8; O2SAT 90–98; BMI 36.0
--- NOTE | 2021-05-30 12:12 | W.ED.GENADLT ---
HPI - General Adult General: Chief complaint: Arrhythmia/Palpitations Stated complaint: HTN/ AFIB/ LOW O2 SATS Time Seen by Provider: 05/30/21 12:11 History of Present Illness: HPI narrative: 65-year-old female presents emergency room complaining of rapid heart rate. She said she has been feeling weak and short of breath last couple of days. Intermittently she said symptoms for a week but it has been getting progressively worsening. She difficulty breathing when upright but does have some orthopnea. She denies any sharp chest pain. She has a known history of atrial fibrillation is on metoprolol and digoxin. She denies any recent change in her medications missing any medications doses or running out. Onset (ago): hour(s) Severity: mild Quality: burning Relieving factors: none Exacerbating factors: none Associated symptoms: Deny chest pain, confusion, cough, diaphoresis, decreased appetite, dyspnea, fevers/chills, headache(s), malaise, nausea, rash, palpitations, seizures, short of breath, syncope, vomiting or weakness Treatments prior to arrival: none Review of Systems Const: Denies: malaise or diaphoresis ENMT: Denies: throat pain, ear or mastoid pain, nasal discharge or nasal congestion Card: Denies: chest pain, palpitations or syncope Resp: Denies: dyspnea GI: Denies: nausea or vomiting : Denies: flank pain, difficulty voiding, dysuria, urinary frequency or urinary urgency Skin/Breast: Denies: rash Neuro: Denies: headache(s) or confusion PFS ED PFSH: Medical History (Updated 05/30/21 @ 15:12 by Chong Ellis) Atrial fibrillation CHF (congestive heart failure) Chronic cystitis COPD (chronic obstructive pulmonary disease) Diabetes History of leukemia HTN (hypertension) Hypercholesteremia Surgical History History of back surgery Hx of appendectomy Hx of cholecystectomy Hx of sinus surgery Hx of total thyroidectomy Family History Mother CAD (coronary artery disease) Social History Smoking and tobacco status: never smoked Alcohol intake: never Marital status: / Current occupational status: retired History of recent travel: No Physical Exam Const: GENERAL APPEARANCE: cooperative and comfortable ORIENTATION/CONSCIOUSNESS: Yes awake, Yes oriented to person, Yes oriented to place and Yes oriented to time HENMT: COMMON NORMALS: normocephalic, atraumatic and hearing grossly normal bilaterally HEAD & SCALP: normocephalic and atraumatic Neck/C-Spine: COMMON NORMALS: no JVD Resp: COMMON NORMALS: normal respiratory effort, No retractions, No use of accessory muscles and clear to auscultation bilaterally AUSCULTATION: clear to auscultation bilaterally Cardio: COMMON NORMALS: no JVD and No murmurs present (Cardio) RATE: tachycardic RHYTHM: abnormal rhythm irregularly irregular GI: COMMON NORMALS: Soft to palpation and No hepatosplenomegaly present AUSCULTATION: Yes normoactive bowel sounds PALPATION: Yes Soft to palpation, No Tenderness to palpation present (GI), No Guarding due to palpation present (GI) and Yes No hepatosplenomegaly present Extremity: COMMON NORMALS: normal to inspection, capillary refill normal, no clubbing, cyanosis or edema, no calf tenderness and no pedal edema Neuro: SENSORIUM/ORIENTATION: Yes oriented to person, Yes oriented to place and Yes oriented to time Skin: COMMON NORMALS: no rashes or lesions noted GENERAL SKIN EXAM: no rashes or lesions noted Course Vital Signs: Vital signs: Vital Signs Temperature 97.8 F 05/31/21 03:34 Pulse Rate 76 05/31/21 03:34 Respiratory Rate 22 H 05/31/21 03:34 Blood Pressure 134/79 05/31/21 03:34 Pulse Oximetry 98 05/31/21 03:34 MDM - General Adult MDM Narrative: Medical decision making narrative: A. fib with RVR improved after starting on Cardizem bolus and drip. Rate is consistently around 100 now patient is feeling somewhat better. We will go ahead and admit for rate control medication adjustment discussed with hospitalist orders written Lab Data: Labs: Lab Results 05/30/21 05/30/21 05/30/21 12:34 12:34 12:34 WBC 12.0 10^3/uL H 10 ^3/uL (4.0-10.0) RBC 3.98 10^6/uL L 10 ^6/uL (4.1-5.3) Hgb 11.2 g/dL L g/dL (11.5-15.3) Hct 35.6 % L % (37.0-47.0) MCV 89.4 fl fl (81-99) MCH 28.1 pg pg (28.0-34.0) MCHC 31.5 g/dL g/dL (30.0-36.0) RDW 16.1 % H % (12.1-15.1) Plt Count 222 10^3/cmm 10^3 /cmm (130-400) MPV 11.2 fL H fL (7.4-10.4) Neut % (Auto) 86.4 % % Lymph % (Auto) 7.8 % % [place] % (Auto) 4.7 % % Eos % (Auto) 0.4 % % Baso % (Auto) 0.3 % % Neut # (Auto) 10.37 10^3/uL H 1 0^3/uL (1.8-7.7) Lymph # (Auto) 0.9 10^3/uL 10^3/ uL (0.8-4.8) [place] # (Auto) 0.6 10^3/uL 10^3/ uL (0.2-0.9) Eos # (Auto) 0.1 10^3/uL 10^3/ uL (0.0-0.8) Baso # (Auto) 0.0 10^3/uL 10^3/ uL (0.0-0.1) Nucleated RBC % (a uto) 0 % % Nucleated RBCs # 0.0 /100WBC /100W BC Sodium Cancelled Potassium Cancelled Chloride Cancelled Carbon Dioxide Cancelled Anion Gap Cancelled BUN Cancelled Creatinine Cancelled GFR Calculation Cancelled Glucose Cancelled Calculated Osmolal ity Cancelled Calcium Cancelled Total Bilirubin Cancelled AST Cancelled ALT Cancelled Alkaline Phosphata se Cancelled Creatine Kinase Cancelled Troponin T Baselin e NT-Pro-B Natriuret Pep Cancelled Total Protein Cancelled Albumin Cancelled Globulin Cancelled TSH Digoxin Cancelled 05/30/21 05/30/21 05/30/21 12:34 13:39 13:39 WBC RBC Hgb Hct MCV MCH MCHC RDW Plt Count MPV Neut % (Auto) Lymph % (Auto) [place] % (Auto) Eos % (Auto) Baso % (Auto) Neut # (Auto) Lymph # (Auto) [place] # (Auto) Eos # (Auto) Baso # (Auto) Nucleated RBC % (a uto) Nucleated RBCs # Sodium 139 mmol/L mmol/L (136-145) Potassium 3.9 mmol/L mmol/L (3.5-5.1) Chloride 101 mmol/L mmol/L (98-107) Carbon Dioxide 25 mmol/L mmol/L (22-29) Anion Gap 16.9 (5-19) BUN 16 mg/dL mg/dL (8-23) Creatinine 0.9 mg/dL mg/dL (0.5-0.9) GFR Calculation 62.8 mL/min L mL/ min (90-130) Glucose 104 mg/dL mg/dL (65-115) Calculated Osmolal ity 289 mOsm/kg mOsm/ kg (285-295) Calcium 8.8 mg/dL mg/dL (8.5-10.5) Total Bilirubin 0.9 mg/dL mg/dL (0.15-1.2) AST 15 U/L U/L (0-32) ALT 17 U/L U/L (0-33) Alkaline Phosphata se 138 IU/L H IU/L (35-105) Creatine Kinase 46 U/L U/L (26-192) Troponin T Baselin e Cancelled NT-Pro-B Natriuret Pep 2769 pg/mL H pg/m L (0-125) Total Protein 7.2 g/dL g/dL (6.6-8.7) Albumin 4.1 g/dL g/dL (3.5-5.2) Globulin 3.1 g/dL g/dL (1.3-4.6) TSH Digoxin 0.9 ng/mL ng/mL (0.6-1.2) 05/30/21 05/30/21 13:39 13:39 WBC RBC Hgb Hct MCV MCH MCHC RDW Plt Count MPV Neut % (Auto) Lymph % (Auto) [place] % (Auto) Eos % (Auto) Baso % (Auto) Neut # (Auto) Lymph # (Auto) [place] # (Auto) Eos # (Auto) Baso # (Auto) Nucleated RBC % (a uto) Nucleated RBCs # Sodium Potassium Chloride Carbon Dioxide Anion Gap BUN Creatinine GFR Calculation Glucose Calculated Osmolal ity Calcium Total Bilirubin AST ALT Alkaline Phosphata se Creatine Kinase Troponin T Baselin e 19 ng/L H ng/L (0-10) NT-Pro-B Natriuret Pep Total Protein Albumin Globulin TSH 0.77 uIU/mL uIU/m L (0.27-4.20) Digoxin Discharge Plan Discharge Patient Disposition: Admitted As Inpatient Admit Provider: Chong Ellis Clinical Impression: Atrial fibrillation with rapid ventricular response Condition: Stable Coding Level of Care Code ED Instructor Product Inspection for Chg Fwd Exam Comprehensive
--- NOTE | 2021-05-30 12:18 | ECG_ITS ---
[facility] Test Date: 2021-05-30 Pat Name: Elizabeth Malik Department: Room: Gender: Female Child Caregiver: : 1955 Requested By: Philip Dumont Order Number: [id number] Jevon MD: Pamela Rehman M.D. Measurements Intervals [place] Rate: 106 P: ID: QRS: 11 QRSD: 90 T: 70 QT: 289 QTc: 385 Interpretive Statements ATRIAL FIBRILLATION WITH RAPID VENTRICULAR RESPONSE ABNORMAL RHYTHM ECG Compared to ECG 03/23/2020 12:50:20 No significant changes Electronically Signed On 05-30-2021 15:23:25 FOOD COUNTER WORKER by Pamela Rehman M.D. [id number]
--- NOTE | 2021-05-30 12:18 | XR_ITS ---
WS: [id number] Portable AP upright chest, 05/30/2021 Clinical Data: dyspnea/cough Comparison: Portable chest, 02/06/2020. Findings: No nodules, masses or effusions are seen. The heart is enlarged. The pulmonary vascularity is not increased. No pneumonia or pneumothorax is seen. Monitor leads are on the chest wall. XR/XR chest 1V portable [id number] Impression: Cardiomegaly.
[2021-05-30 12:50] LABS: Basophils % 0.3 %; Eosinophils # 0.1 10^3/uL (0.0-0.8); Eosinophils % 0.4 %; Hematocrit 35.6 % (37.0-47.0); Hemoglobin 11.2 g/dL (11.5-15.3); Lymphocytes # 0.9 10^3/uL (0.8-4.8); Lymphocytes % 7.8 %; Mean Corpuscular HGB Conc 31.5 g/dL (30.0-36.0); Mean Corpuscular Hemoglobin 28.1 pg (28.0-34.0); Mean Corpuscular Volume 89.4 fl (81-99); Mean Platelet Volume 11.2 fL (7.4-10.4); Monocytes # 0.6 10^3/uL (0.2-0.9); Monocytes % 4.7 %; Neutrophils # 10.37 10^3/uL (1.8-7.7); Neutrophils % 86.4 %; Nucleated Red Blood Cells % 0 %; Platelet Count 222 10^3/cmm (130-400); Red Blood Count 3.98 10^6/uL (4.1-5.3); Red Cell Distribution Width 16.1 % (12.1-15.1)
--- NOTE | 2021-05-30 14:18 | ECG_ITS ---
[facility] Test Date: 2021-05-30 Pat Name: Elizabeth Malik Department: Room: Gender: Female Account Development Executive: : 1955 Requested By: Philip Dumont Order Number: [id number] Jevon MD: Pamela Rehman M.D. Measurements Intervals [place] Rate: 95 P: [place]: QRS: 7 QRSD: 84 T: 87 QT: 269 QTc: 338 Interpretive Statements ATRIAL FIBRILLATION ABNORMAL RHYTHM ECG Compared to ECG 05/30/2021 12:43:54 No significant changes Electronically Signed On 05-30-2021 16:51:16 SOLAR MANAGER by Pamela Rehman M.D. [email or web address] daytonMatter [facility] [email or web address]/store/OM/[id number]
[2021-05-30 14:36] LABS: Digoxin 0.9 ng/mL (0.6-1.2)
[2021-05-30 14:39] LABS: Troponin(5th) Baseline 19 ng/L (0-10)
[2021-05-30 14:54] LABS: Alanine Aminotransferase 17 U/L (0-33); Albumin Level 4.1 g/dL (3.5-5.2); Alkaline Phosphatase 138 IU/L (35-105); Anion Gap 16.9 (5-19); Aspartate Amino Transferase 15 U/L (0-32); Blood Urea Nitrogen 16 mg/dL (8-23); Calcium 8.8 mg/dL (8.5-10.5); Carbon Dioxide 25 mmol/L (22-29); Chloride 101 mmol/L (98-107); Creatine Phosphokinase 46 U/L (26-192); Globulin 3.1 g/dL (1.3-4.6); Glomerular Filtration Rate 62.8 mL/min (90-130); Glucose 104 mg/dL (65-115); NT Pro B Type Natriuretic Pept 2769 pg/mL (0-125); Osmolality Calculated 289 mOsm/kg (285-295); Potassium 3.9 mmol/L (3.5-5.1); Sodium 139 mmol/L (136-145); Total Bilirubin 0.9 mg/dL (0.15-1.2); Total Protein 7.2 g/dL (6.6-8.7)
--- NOTE | 2021-05-30 15:09 | P.HP_ITS ---
Providers/Chief Complaint Primary Care Provider: Poonam Cavazos DO Chief Complaint: HTN/ AFIB/ LOW O2 SATS History of Present Illness Elizabeth Malik is a 65 year old female with past medical history of atrial fibrillation, hypertension, CHF, dyslipidemia, GERD, hypothyroidism, diabetes, mild cognitive impairment, anxiety who is presenting to emergency room with complaints of diarrhea. She states that anything she eats goes directly through her. The diarrhea is watery. Denies black stool or blood. Denies abdominal pain. Denies fever or chills. No nausea or vomiting. Denies similar episodes in the past. She states that it was going on for several days now. She denies any recent antibiotics. In emergency room she was found to have A. fib with RVR. Started on diltiazem drip after initial bolus. She denies associated chest pain, palpitations, shortness of breath. Review of Systems General: Reports: 10 or more systems reviewed and unremarkable except in HPI and below Medications/Allergies Home Medications Medication Instructions Recorded Confirmed Last Taken Type atorvastatin 20 mg tablet 20 mg PO DAILY 09/12/19 05/30/21 02/05/20 History omeprazole 20 mg capsule,delayed 20 mg PO BID 09/12/19 05/30/21 02/06/20 History release rivaroxaban 20 mg tablet 20 mg PO DAILY 09/12/19 05/30/21 02/06/20 History digoxin 125 mcg (0.125 mg) tablet 0.125 mcg PO DAILY tab 06/24/20 05/30/21 Unknown History potassium chloride 20 mEq 10 meq PO DAILY tab 09/21/20 05/30/21 Unknown History tablet,extended release L. gasseri-B. bifidum-B longum 1 cap PO DAILY 05/30/21 05/30/21 Unknown History [[facility]CO[facility]] acetaminophen 1,000 mg PO Q6H PRN 05/30/21 05/30/21 Unknown History albuterol sulfate 2 puff INHALATION Q6H PRN 05/30/21 05/30/21 Unknown History aripiprazole [Abilify] 2 mg PO DAILY 05/30/21 05/30/21 Unknown History cetirizine 10 mg PO DAILY 05/30/21 05/30/21 Unknown History diclofenac sodium 2 g TOPICAL . DIRECTED 05/30/21 05/30/21 Unknown History fluticasone propionate 2 spray INTRANASAL DAILY 05/30/21 05/30/21 Unknown History formoterol fumarate [Perforomist] 2 ml INHALATION Q12H 05/30/21 05/30/21 Unknown History furosemide [Lasix] 40 mg PO DAILY 05/30/21 05/30/21 Unknown History levothyroxine 100 mcg PO DAILY 05/30/21 05/30/21 Unknown History metoprolol succinate 100 mg PO DAILY 05/30/21 05/30/21 Unknown History Allergies Allergy/AdvReac Type Severity Reaction Status Date / Time amitriptyline Allergy Unknown Falling Verified 05/30/21 12:21 acetaminophen Allergy Unknown Verified 05/30/21 12:21 [From Darvocet-N] adhesive Allergy ADR-Itching Verified 05/30/21 12: gabapentin Allergy Unknown Verified 05/30/21 12:21 pregabalin [From Lyrica] Allergy Unknown Verified 05/30/21 12:21 propoxyphene Allergy Unknown Verified 05/30/21 12:21 [From Darvocet-N] PFSH Acute PFSH: Medical History (Updated 05/30/21 @ 15:12 by Chong Ellis) Atrial fibrillation CHF (congestive heart failure) Chronic cystitis COPD (chronic obstructive pulmonary disease) Diabetes History of leukemia HTN (hypertension) Hypercholesteremia Surgical History History of back surgery Hx of appendectomy Hx of cholecystectomy Hx of sinus surgery Hx of total thyroidectomy Family History Mother CAD (coronary artery disease) Social History Smoking and tobacco status: never smoked Alcohol intake: never Marital status: / Current occupational status: retired History of recent travel: No Vitals/I&O/Wt Last Vital Signs Temp 97.9 F 05/30/21 12:15 Pulse 96 05/30/21 14:36 Resp 24 H 05/30/21 14:36 BP 179/130 05/30/21 12:54 Pulse Ox 95 05/30/21 14:36 05/30/21 05/30/21 05/30/21 06:59 14:59 22:59 Intake Total 10.667 / 10.667 Balance 10.667 / 10.667 Weight last 48 hrs Weight 104.326 kg Physical Exam Narrative: EXAM NARRATIVE: The patient is awake alert oriented. No acute distress. Mood and affect are appropriate. Responses are adequate. Skin is warm and dry. Moist extremities. Neck supple. No JVD Lungs are clear to auscultation bilaterally. Heart S1, S2, irregularly irregular Abdomen soft, nontender, bowel sounds are present Extremities bilateral pedal edema, no cyanosis or calf tenderness bilaterally Eyes PERRL, extraocular muscles are intact. Normal speech. Neuro examination is nonfocal. Data : 05/30/21 12:34 05/30/21 13:39 Other Labs: Laboratory Results WBC 12.0 10^3/uL (4.0-10.0) H 05/30/21 12:34 RBC 3.98 10^6/uL (4.1-5.3) L 05/30/21 12:34 Hgb 11.2 g/dL (11.5-15.3) L 05/30/21 12:34 Hct 35.6 % (37.0-47.0) L 05/30/21 12:34 MCV 89.4 fl (81-99) 05/30/21 12:34 MCH 28.1 pg (28.0-34.0) 05/30/21 12:34 MCHC 31.5 g/dL (30.0-36.0) 05/30/21 12:34 RDW 16.1 % (12.1-15.1) H 05/30/21 12:34 Plt Count 222 10^3/cmm (130-400) 05/30/21 12:34 MPV 11.2 fL (7.4-10.4) H 05/30/21 12:34 Neut % (Auto) 86.4 % 05/30/21 12:34 Lymph % (Auto) 7.8 % 05/30/21 12:34 [place] % (Auto) 4.7 % 05/30/21 12:34 Eos % (Auto) 0.4 % 05/30/21 12:34 Baso % (Auto) 0.3 % 05/30/21 12:34 Neut # (Auto) 10.37 10^3/uL (1.8-7.7) H 05/30/21 12:34 Lymph # (Auto) 0.9 10^3/uL (0.8-4.8) 05/30/21 12:34 [place] # (Auto) 0.6 10^3/uL (0.2-0.9) 05/30/21 12:34 Eos # (Auto) 0.1 10^3/uL (0.0-0.8) 05/30/21 12:34 Baso # (Auto) 0.0 10^3/uL (0.0-0.1) 05/30/21 12:34 Nucleated RBC % (auto) 0 % 05/30/21 12:34 Nucleated RBCs # 0.0 /100WBC 05/30/21 12:34 Sodium 139 mmol/L (136-145) 05/30/21 13:39 Potassium 3.9 mmol/L (3.5-5.1) 05/30/21 13:39 Chloride 101 mmol/L (98-107) 05/30/21 13:39 Carbon Dioxide 25 mmol/L (22-29) 05/30/21 13:39 Anion Gap 16.9 (5-19) 05/30/21 13:39 BUN 16 mg/dL (8-23) 05/30/21 13:39 Creatinine 0.9 mg/dL (0.5-0.9) 05/30/21 13:39 GFR Calculation 62.8 mL/min (90-130) L 05/30/21 13:39 Glucose 104 mg/dL (65-115) 05/30/21 13:39 Calculated Osmolality 289 mOsm/kg (285-295) 05/30/21 13:39 Calcium 8.8 mg/dL (8.5-10.5) 05/30/21 13:39 Total Bilirubin 0.9 mg/dL (0.15-1.2) 05/30/21 13:39 AST 15 U/L (0-32) 05/30/21 13:39 ALT 17 U/L (0-33) 05/30/21 13:39 Alkaline Phosphatase 138 IU/L (35-105) H 05/30/21 13:39 Creatine Kinase 46 U/L (26-192) 05/30/21 13:39 Troponin T Baseline 19 ng/L (0-10) H 05/30/21 13:39 NT-Pro-B Natriuret Pep 2769 pg/mL (0-125) H 05/30/21 13:39 Total Protein 7.2 g/dL (6.6-8.7) 05/30/21 13:39 Albumin 4.1 g/dL (3.5-5.2) 05/30/21 13:39 Globulin 3.1 g/dL (1.3-4.6) 05/30/21 13:39 Digoxin 0.9 ng/mL (0.6-1.2) 05/30/21 13:39 Impressions Chest X-Ray 05/30/21 12:18 Impression: Cardiomegaly. KG shows A. fib with RVR. No acute ischemic changes. A&P Assessment and plan (1) Atrial fibrillation with rapid ventricular response: Status: Acute (2) Uncontrolled hypertension: Status: Acute (3) Diarrhea: Status: Acute (4) Anemia: Status: Acute Additional A&P Information 65 year old female with past medical history of atrial fibrillation, hypertension, CHF, dyslipidemia, GERD, hypothyroidism, diabetes, mild cognitive impairment, anxiety who is presenting to emergency room with complaints of diarrhea. A. fib and RVR. Currently on diltiazem drip. Most likely due to diarrhea and dehydration. We will hydrate her. We will resume her home medications. We will continue diltiazem drip. We will continue monitoring and replacing her electrolytes if needed. We will check her TSH and digoxin level. Diarrhea with associated mild dehydration. Not sure about the cause. Will check stool for C. difficile. We will continue mild hydration. Will monitor and replace electrolytes as needed. History of CHF. No evidence of acute exacerbation. We will continue home medications. Will be very careful with IV fluids. Uncontrolled hypertension. We will resume her home medications. Will use as needed coverage. DVT prophylaxis. We will continue her home Xarelto. Dyslipidemia. We will continue home medication. CODE STATUS. She wants to be full code. The plan of care was discussed with the patient. She verbalized understanding and agreement. Attestations Medical Necessity Statement*: Considering patient's findings and diagnosis and plan of care I expect that the patient will spend more than 2 midnights in the hospital. Coding Level of Care Code Acute Animal Doctor for Anselmo Rodgers Diagnoses Atrial fibrillation with rapid ventricular response I48.91 Uncontrolled hypertension I10 Diarrhea R19.7 Anemia D64.9
[2021-05-30 15:52] LABS: Thyroid Stimulating Hormone 0.77 uIU/mL (0.27-4.20)
[2021-05-30 16:05] LABS: Troponin 5 2HR 19.37 ng/L (0-10); Troponin 5 2HR Delta 0.37 ABS# (0-10)
[2021-05-30] MEDS: sodium chlor 0.9% + KCl 20 mEq 20 MEQ/1,000 ML BAG 75 MEQ IV (17:08)
[2021-05-30 17:33] LABS: Glucose Point of Care 106 mg/dL (70-110)
--- NOTE | 2021-05-30 18:18 | ECG_ITS ---
[facility] Test Date: 2021-05-30 Pat Name: Elizabeth Malik Department: Room: Gender: Female Wool Washer Feeder: : 1955 Requested By: Philip Dumont Order Number: [id number] Jevon MD: Pamela Rehman M.D. Measurements Intervals [place] Rate: 99 P: [place]: QRS: -2 QRSD: 99 T: 81 QT: 372 QTc: 477 Interpretive Statements ATRIAL FIBRILLATION WITH ABERRANT CONDUCTION OR VENTRICULAR PREMATURE COMPLEXES ABNORMAL RHYTHM ECG Compared to ECG 05/30/2021 14:17:45 Ventricular premature complex(es) now present Aberrant conduction of supraventricular beat(s) now present Electronically Signed On 05-30-2021 22:32:49 RN LICENSED PRACTICAL by Pamela Rehman M.D. [id number]
[2021-05-30] MEDS: pantoprazole DR 40 mg Tablet PO (18:38)
[2021-05-30] MEDS: acetaminophen 500 mg Tablet 1000 MG PO (20:41)
[2021-05-30 20:46] LABS: Troponin 5 6HR 20.35 ng/L (0-10); Troponin 5 6HR Delta 1.35 ng/L (0-12)
[2021-05-30 21:25] LABS: Glucose Point of Care 117 mg/dL (70-110)
[2021-05-31] VITALS (8 sets, daily range): BP systolic 124–143; BP diastolic 79–97; PULSE 73–98; RESP 18–26; TEMP 36.6; O2SAT 95–99
[2021-05-31] MEDS: acetaminophen 500 mg Tablet 1000 MG PO ×2 (03:38→12:36)
[2021-05-31] MEDS: sodium chlor 0.9% + KCl 20 mEq 20 MEQ/1,000 ML BAG 75 MEQ IV (05:24)
[2021-05-31 05:36] LABS: Basophils % 0.2 %; Eosinophils % 0.2 %; Hematocrit 35.7 % (37.0-47.0); Hemoglobin 11.3 g/dL (11.5-15.3); Lymphocytes # 1.4 10^3/uL (0.8-4.8); Lymphocytes % 10.4 %; Mean Corpuscular HGB Conc 31.7 g/dL (30.0-36.0); Mean Corpuscular Hemoglobin 28.3 pg (28.0-34.0); Mean Corpuscular Volume 89.3 fl (81-99); Mean Platelet Volume 10.4 fL (7.4-10.4); Monocytes % 7.3 %; Neutrophils # 10.64 10^3/uL (1.8-7.7); Neutrophils % 81.4 %; Nucleated Red Blood Cells % 0 %; Platelet Count 172 10^3/cmm (130-400); Red Cell Distribution Width 16.2 % (12.1-15.1); White Blood Count 13.1 10^3/uL (4.0-10.0)
[2021-05-31 06:15] LABS: Alanine Aminotransferase 11 U/L (0-33); Albumin Level 3.3 g/dL (3.5-5.2); Alkaline Phosphatase 107 IU/L (35-105); Anion Gap 15.2 (5-19); Aspartate Amino Transferase 8 U/L (0-32); Blood Urea Nitrogen 17 mg/dL (8-23); Calcium 7.9 mg/dL (8.5-10.5); Carbon Dioxide 24 mmol/L (22-29); Chloride 104 mmol/L (98-107); Globulin 2.7 g/dL (1.3-4.6); Glomerular Filtration Rate 62.8 mL/min (90-130); Glucose 106 mg/dL (65-115); NT Pro B Type Natriuretic Pept 2556 pg/mL (0-125); Osmolality Calculated 290 mOsm/kg (285-295); Potassium 4.2 mmol/L (3.5-5.1); Sodium 139 mmol/L (136-145)
[2021-05-31 06:18] LABS: C Reactive Protein 116.6 mg/L (0.0-4.9); Magnesium 1.7 mg/dL (1.7-2.3); Phosphorus 3.5 mg/dL (2.5-4.5)
[2021-05-31 06:45] LABS: Glucose Point of Care 106 mg/dL (70-110)
[2021-05-31] MEDS: metoprolol succinate ER (24 HR) 50 mg Tablet 100 MG PO (09:49)
[2021-05-31] MEDS: levothyroxine 100 mcg Tablet PO (09:49)
[2021-05-31] MEDS: pantoprazole DR 40 mg Tablet PO ×2 (09:49→17:42)
[2021-05-31] MEDS: rivaroxaban 10 mg Tablet 20 MG PO (09:51)
[2021-05-31] MEDS: atorvastatin 40 mg Tablet 20 MG PO (09:51)
[2021-05-31] MEDS: FUROsemide 40 mg Tablet PO (09:51)
[2021-05-31] MEDS: potassium chloride ER 10 mEq Tablet PO (09:51)
[2021-05-31] MEDS: ARIPiprazole 2 mg Tablet PO (09:52)
[2021-05-31] MEDS: digoxin 125 mcg Tablet PO (09:58)
--- NOTE | 2021-05-31 10:44 | P.PN_ITS ---
Subjective Subjective: Interval history: The patient reports feeling better. Currently rate controlled. Diltiazem drip is discontinued. She denies any chest pain, palpitations, shortness of breath, dizziness or lightheadedness. No bowel movement since yesterday. Denies abdominal pain. No fever or chills. Reports nasal congestion today. Reports recent exposure to COVID-19. Medications: Reviewed: Yes Medication Review Details: Generic Name Dose Route Start Last Admin Trade Name Freq PRN Reason Stop Dose Admin Acetaminophen 1,000 mg 05/30/21 15:01 05/31/21 03:38 Acetaminophen 50 0 Mg Tablet PO 1,000 mg Q6H PRN Administration Pain Aripiprazole 2 mg 05/31/21 09:00 05/31/21 09:52 Aripiprazole 2 M g Tablet PO 2 mg DAILY LUCA Administration Atorvastatin Calci um 20 mg 05/31/21 09:00 05/31/21 09:51 Atorvastatin 40 Mg Tablet PO 20 mg DAILY LUCA Administration Digoxin 125 mcg 05/31/21 10:00 05/31/21 09:58 Digoxin 125 Mcg Tablet PO 125 mcg DAILY LUCA Administration Furosemide 40 mg 05/31/21 09:00 05/31/21 09:51 Furosemide 40 Mg Tablet PO 40 mg DAILY LUCA Administration Insulin Human Lisp ro 0 unit 05/30/21 18:00 05/31/21 09:48 Insulin Lispro 1 00 Unit/1 Ml SUBCUT Not Given WM&BEDTIME LUCA Protocol Levothyroxine Sodi um 100 mcg 05/31/21 09:00 05/31/21 09:49 Levothyroxine 10 0 Mcg Tablet PO 100 mcg DAILY LUCA Administration Metoprolol Succina te 100 mg 05/31/21 09:00 05/31/21 09:49 Metoprolol Succi orlando Er (24 Hr) 50 Mg Tablet PO 100 mg DAILY LUCA Administration Non-Formulary Medi cation 2 ml 05/30/21 15:15 05/31/21 10:27 Formoterol Fumar ate [Perforomist] INHALATION Not Given Q12H LUCA Non-Formulary Medi cation 1 cap 05/31/21 09:00 05/31/21 09:58 L. Gasseri-B. Bi fidum-B Longum [[facility]] PO Not Given DAILY LUCA Pantoprazole Sodiu m 40 mg 05/30/21 18:00 05/31/21 09:[address] 40 Mg Tablet PO 40 mg BID LUCA Administration Potassium Chloride 10 meq 05/31/21 09:00 05/31/21 09:51 Potassium Chlori de Er 10 Meq Table t PO 10 meq DAILY LUCA Administration Rivaroxaban 20 mg 05/31/21 09:00 05/31/21 09:51 Rivaroxaban 10 M g Tablet PO 20 mg DAILY LUCA Administration Vitals/I&O/Wt Last Vital Signs Temp 97.8 F 05/31/21 03:34 Pulse 90 05/31/21 09:58 Resp 22 H 05/31/21 03:34 BP 134/79 05/31/21 03:34 Pulse Ox 98 05/31/21 03:34 05/30/21 05/31/21 05/31/21 22:59 06:59 14:59 Intake Total 57.75 / 68.417 1113.083 / 1181.500 Output Total 300 / 300 Balance 57.75 / 68.417 813.083 / 881.500 Weight last 48 hrs Weight 102.013 kg Weight 104.326 kg Physical Exam Narrative: EXAM NARRATIVE: The patient is awake alert oriented. No acute distress. Mood and affect are appropriate. Responses are adequate. Skin is warm and dry. Moist extremities. Neck supple. No JVD Lungs are clear to auscultation bilaterally. Heart S1, S2, irregular Abdomen soft, nontender, bowel sounds are present Extremities bilateral pedal edema, no cyanosis or calf tenderness bilaterally Eyes PERRL, extraocular muscles are intact. Normal speech. Neuro examination is nonfocal. Data : 05/31/21 05:09 05/31/21 05:09 A&P Assessment and plan (1) Atrial fibrillation with rapid ventricular response: Status: Acute (2) Uncontrolled hypertension: Status: Acute (3) Diarrhea: Status: Acute (4) Anemia: Status: Acute Additional A&P Information 65 year old female with past medical history of atrial fibrillation, hypertension, CHF, dyslipidemia, GERD, hypothyroidism, diabetes, mild cognitive impairment, anxiety who is presenting to emergency room with complaints of diarrhea. A. fib and RVR. Off diltiazem drip. Rate controlled now. Resuming home medications. Will need to continue outpatient follow-up with her primary service order expediter after discharge. Will monitor and replace electrolytes as needed. Diarrhea with associated mild dehydration. Not sure about the cause. No diarrhea today. C. difficile testing is still pending. Stopping IV fluids. We will continue oral hydration. History of CHF. No evidence of acute exacerbation. We will continue home medications. Uncontrolled hypertension. Improved control. We will resume her home medications. Will adjust as needed. Will use as needed coverage. Anemia. Stable. Chronic. Continue monitoring. Nasal congestion and recent exposure to COVID-19. Will order rapid Covid test. DVT prophylaxis. We will continue her home Xarelto. Dyslipidemia. We will continue home medication. CODE STATUS. She wants to be full code. The plan of care was discussed with the patient. She verbalized understanding and agreement. Attestations Medical Necessity Statement*: I expect that the patient will need another day and night for final stabilization and possible discharge home tomorrow. Coding Level of Care Code Acute Set Up Mechanic Automatic Line for Anselmo Fwd Diagnoses Atrial fibrillation with rapid ventricular response I48.91 Uncontrolled hypertension I10 Diarrhea R19.7 Anemia D64.9
[2021-05-31] MEDS: diclofenac 1% Topical Gel 100 gm 1 APPLIC TOPICAL (11:43)
[2021-05-31 11:50] LABS: Glucose Point of Care 102 mg/dL (70-110)
--- NOTE | 2021-05-31 15:11 | PC.NURSE ---
nurse sent [facility] pcr this morning as ordered.lab called this afternoon and stated that [facility] cannot process this test...so it will be cancelled and reorder as a send out test.
[2021-05-31 16:25] LABS: Glucose Point of Care 124 mg/dL (70-110)
[2021-05-31 20:10] LABS: Glucose Point of Care 162 mg/dL (70-110)
--- NOTE | 2021-05-31 23:23 | PC.NURSE ---
Patient states that she is not eating anything so she feels like the insulin is not needed. Only two units were supposed to be given for her coverage however she did not want it given.
[2021-06-01] VITALS (12 sets, daily range): BP systolic 135–153; BP diastolic 93–123; PULSE 72–98; RESP 10–20; TEMP 36.5–36.8; O2SAT 92–98
[2021-06-01] MEDS: acetaminophen 500 mg Tablet 1000 MG PO ×3 (01:44→21:26)
--- NOTE | 2021-06-01 04:46 | PC.NURSE ---
Shift Note Frequent safety and comfort rounds continue. Orders and/or nursing care completed as indicated. Patient monitored for response to intervention and treatment(s). Education provided includes[]. Patient and/or contracts representative [ResponseToTeaching]. Will continue to monitor.
--- NOTE | 2021-06-01 04:46 | PC.NURSE ---
Shift Note Frequent safety and comfort rounds continue. Orders and/or nursing care completed as indicated. Patient monitored for response to intervention and treatment(s). Education provided includes pain management strategies not including medications. Patient and/or manufacturer's representative verbalizes understanding. Will continue to monitor.
[2021-06-01 06:07] LABS: Albumin Level 3.3 g/dL (3.5-5.2); Blood Urea Nitrogen 18 mg/dL (8-23); Calcium 8.1 mg/dL (8.5-10.5); Carbon Dioxide 25 mmol/L (22-29); Chloride 106 mmol/L (98-107); Glomerular Filtration Rate 55.6 mL/min (90-130); Glucose 100 mg/dL (65-115); Phosphorus 3.6 mg/dL (2.5-4.5); Sodium 140 mmol/L (136-145)
[2021-06-01 06:10] LABS: Anion Gap 13.7 (5-19); Creatinine Clr Calc Pharmacy 68.8546; Potassium 4.7 mmol/L (3.5-5.1)
[2021-06-01 06:34] LABS: Glucose Point of Care 103 mg/dL (70-110)
--- NOTE | 2021-06-01 08:00 | PC.NURSE ---
Pt stated her slurred speech is chronic on her. She said this is nothing new. she had a fall a month ago and her left arm has chronic weakness and tenderness.
[2021-06-01] MEDS: digoxin 125 mcg Tablet PO (09:04)
[2021-06-01] MEDS: atorvastatin 40 mg Tablet 20 MG PO (09:05)
[2021-06-01] MEDS: metoprolol succinate ER (24 HR) 50 mg Tablet 100 MG PO (09:05)
[2021-06-01] MEDS: ARIPiprazole 2 mg Tablet PO (09:05)
[2021-06-01] MEDS: levothyroxine 100 mcg Tablet PO (09:05)
[2021-06-01] MEDS: potassium chloride ER 10 mEq Tablet PO (09:05)
[2021-06-01] MEDS: pantoprazole DR 40 mg Tablet PO ×2 (09:05→16:51)
[2021-06-01] MEDS: FUROsemide 40 mg Tablet PO (09:05)
[2021-06-01] MEDS: rivaroxaban 10 mg Tablet 20 MG PO (09:05)
--- NOTE | 2021-06-01 09:42 | PC.CHAP ---
Pastoral Care Encounter/Spiritual Assessment Type of Contact [] Declined criminal records technician visit [] Patient/Family/Request visit [] Outpatient visit [] Follow-up visit [] Physician referral [] Code/Alert [x] Routine visit [] Staff referral [] Actively dying [] Patient sleeping [] Family support [] [] Out of room [] Palliative care [] [] Receiving care in room [] Pre-surgical visit [] Trauma [] Long length of stay [] ICU visit [x] Other: isolated Relational/Emotional Strength [] Patient feels connected with others/family/visitors/staff [] Distress [] Loneliness/isolation [] Abandonment Spirituality of Patient [] Person of Tamara [] Attends Mosque of their Tamara [] Believes in Prayer [] Reads Bible or Worship materials [] There are Spiritual issues to be addressed Oncology Social Worker Interventions [x] Prayer [] Active listening [] Non-anxious presence [] Spiritual/emotional support [] Crisis/trauma care [] Spiritual counseling [] Bereavement support [] Provided bereavement packet [] Provided Bible/devotional materials [] Provided toy/stuffed animal, coloring book to patient or family member [] Provided Communion [] Anointing/Uvalda [] Salvation [x] Completed spiritual assessment [] Other: Impact on Illness or Injury [] Angry [] Fearful [] Anxious [] Often cries [] Exhaustion [] Unable to work [] Unable to attend yarsani [] Unable to walk/stand [] Unable to read [] Unable to drive [] Unable to eat/drink [] Unable to sleep [] Unable to be with family [] Patient intubated [] Other: Summary Time spent with patient
--- NOTE | 2021-06-01 10:37 | PM.PN ---
Subjective Subjective: Interval history: Patient reports improving symptoms. Denies any active complaints. No chills. No nausea or vomiting. Diarrhea is improved. No chest pain, palpitations, shortness of breath. Medications: Reviewed: Yes Medication Review Details: Generic Name Dose Route Start Last Admin Trade Name Freq PRN Reason Stop Dose Admin Acetaminophen 1,000 mg 05/30/21 15:01 06/01/21 01:44 Acetaminophen 50 0 Mg Tablet PO 1,000 mg Q6H PRN Administration Pain Aripiprazole 2 mg 05/31/21 09:00 06/01/21 09:05 Aripiprazole 2 M g Tablet PO 2 mg DAILY LUCA Administration Atorvastatin Calci um 20 mg 05/31/21 09:00 06/01/21 09:05 Atorvastatin 40 Mg Tablet PO 20 mg DAILY LUCA Administration Diclofenac Sodium 1 applic 05/30/21 15:15 05/31/21 11:43 Diclofenac 1% To pical Gel 100 Gm TOPICAL 1 applic QID PRN Administration ARTHRITIS Digoxin 125 mcg 05/31/21 10:00 06/01/21 09:04 Digoxin 125 Mcg Tablet PO 125 mcg DAILY LUCA Administration Furosemide 40 mg 05/31/21 09:00 06/01/21 09:05 Furosemide 40 Mg Tablet PO 40 mg DAILY LUCA Administration Insulin Human Lisp ro 0 unit 05/30/21 18:00 06/01/21 07:31 Insulin Lispro 1 00 Unit/1 Ml SUBCUT Not Given WM&BEDTIME [facility] Protocol Levothyroxine Sodi um 100 mcg 05/31/21 09:00 06/01/21 09:05 Levothyroxine 10 0 Mcg Tablet PO 100 mcg DAILY LUCA Administration Metoprolol Succina te 100 mg 05/31/21 09:00 06/01/21 09:05 Metoprolol Succi orlando Er (24 Hr) 50 Mg Tablet PO 100 mg DAILY LUCA Administration Non-Formulary Medi cation 2 ml 05/30/21 15:15 06/01/21 01:42 Formoterol Fumar ate [Perforomist] INHALATION Not Given Q12H [facility] Non-Formulary Medi cation 1 cap 05/31/21 09:00 06/01/21 09:05 L. Gasseri-B. Bi fidum-B Longum [[facility] ill[facility]' Colon Heal th] PO Not Given DAILY [facility] Pantoprazole Sodiu m 40 mg 05/30/21 18:00 06/01/21 09:[address] 40 Mg Tablet PO 40 mg BID LUCA Administration Potassium Chloride 10 meq 05/31/21 09:00 06/01/21 09:05 Potassium Chlori de Er 10 Meq Table t PO 10 meq DAILY LUCA Administration Rivaroxaban 20 mg 05/31/21 09:00 06/01/21 09:05 Rivaroxaban 10 M g Tablet PO 20 mg DAILY LUCA Administration Vitals/I&O/Wt Last Vital Signs Temp 97.7 F 06/01/21 08:20 Pulse 98 06/01/21 09:04 Resp 19 H 06/01/21 08:20 BP 145/106 06/01/21 08:20 Pulse Ox 94 06/01/21 08:20 05/31/21 06/01/21 06/01/21 22:59 06:59 14:59 Intake Total 200 / 800 288.5 / 1088.5 360 / 360 Output Total 4000 / 4000 1800 / 5800 Balance -3800 / -3200 -1511.5 / -4711.5 360 / 360 Weight last 48 hrs Weight 102.013 kg Weight 104.326 kg Physical Exam Narrative: EXAM NARRATIVE: The patient is awake alert oriented. No acute distress. Mood and affect are appropriate. Responses are adequate. Skin is warm and dry. Moist extremities. Neck supple. No JVD Lungs are clear to auscultation bilaterally. Heart S1, S2, irregular Abdomen soft, nontender, bowel sounds are present Extremities bilateral pedal edema, no cyanosis or calf tenderness bilaterally Eyes PERRL, extraocular muscles are intact. Normal speech. Neuro examination is nonfocal. Data : 05/31/21 05:09 06/01/21 05:00 Micro: Microbiology 05/31/21 13:25 C.difficile Toxin B Gene (PCR) - Final Stool Routine Collection A&P Assessment and plan (1) Atrial fibrillation with rapid ventricular response: Status: Acute (2) Uncontrolled hypertension: Status: Acute (3) Diarrhea: Status: Acute (4) Anemia: Status: Acute Additional A&P Information 65 year old female with past medical history of atrial fibrillation, hypertension, CHF, dyslipidemia, GERD, hypothyroidism, diabetes, mild cognitive impairment, anxiety who is presenting to emergency room with complaints of diarrhea. A. fib and RVR. Off diltiazem drip. Rate controlled now. Home medications resumed. Will need to continue outpatient follow-up with her primary roller machine operator after discharge. Will monitor and replace electrolytes as needed. Diarrhea with associated mild dehydration. Not sure about the cause. No diarrhea today. C. difficile negative.. No dehydration. History of CHF. No evidence of acute exacerbation. We will continue home medications. Uncontrolled hypertension. Improved control. Continuing home medications. Will adjust as needed. CKD. Stable renal function. Continue monitoring. Anemia. Stable. Chronic. Continue monitoring. Nasal congestion and recent exposure to COVID-19. Covid testing is pending. DVT prophylaxis. We will continue her home Xarelto. Dyslipidemia. We will continue home medication. CODE STATUS. She wants to be full code. The plan of care was discussed with the patient. She verbalized understanding and agreement. Attestations Medical Necessity Statement*: Expecting discharge tomorrow. Continuing current management. Coding Level of Care Code Acute Plug Maker for Anselmo Fwd Diagnoses Atrial fibrillation with rapid ventricular response I48.91 Uncontrolled hypertension I10 Diarrhea R19.7 Anemia D64.9
[2021-06-01 11:48] LABS: Glucose Point of Care 136 mg/dL (70-110)
[2021-06-01 17:10] LABS: Glucose Point of Care 101 mg/dL (70-110)
[2021-06-01 21:28] LABS: Glucose Point of Care 143 mg/dL (70-110)
[2021-06-02] VITALS (10 sets, daily range): BP systolic 137–168; BP diastolic 87–126; PULSE 75–95; RESP 17–22; TEMP 36.6–36.9; O2SAT 94–98
[2021-06-02] MEDS: fluticasone nasal spray 16gm Btl 2 SPRAY INTRANASAL (00:29)
[2021-06-02 05:07] LABS: Basophils % 0.4 %; Eosinophils # 0.2 10^3/uL (0.0-0.8); Eosinophils % 1.9 %; Hematocrit 39.2 % (37.0-47.0); Hemoglobin 12.1 g/dL (11.5-15.3); Lymphocytes # 1.7 10^3/uL (0.8-4.8); Lymphocytes % 20.8 %; Mean Corpuscular HGB Conc 30.9 g/dL (30.0-36.0); Mean Corpuscular Hemoglobin 27.8 pg (28.0-34.0); Mean Corpuscular Volume 90.1 fl (81-99); Mean Platelet Volume 10.3 fL (7.4-10.4); Monocytes # 0.7 10^3/uL (0.2-0.9); Monocytes % 9.2 %; Neutrophils # 5.44 10^3/uL (1.8-7.7); Neutrophils % 67.2 %; Nucleated Red Blood Cells % 0 %; Platelet Count 206 10^3/cmm (130-400); Red Blood Count 4.35 10^6/uL (4.1-5.3); Red Cell Distribution Width 15.9 % (12.1-15.1); White Blood Count 8.1 10^3/uL (4.0-10.0)
[2021-06-02] MEDS: acetaminophen 500 mg Tablet 1000 MG PO (06:04)
[2021-06-02 06:13] LABS: Albumin Level 3.4 g/dL (3.5-5.2); Anion Gap 14.4 (5-19); Blood Urea Nitrogen 19 mg/dL (8-23); Calcium 8.3 mg/dL (8.5-10.5); Carbon Dioxide 24 mmol/L (22-29); Chloride 105 mmol/L (98-107); Glucose 100 mg/dL (65-115); Phosphorus 3.8 mg/dL (2.5-4.5); Potassium 4.4 mmol/L (3.5-5.1); Sodium 139 mmol/L (136-145)
[2021-06-02 06:34] LABS: Glucose Point of Care 132 mg/dL (70-110)
[2021-06-02] MEDS: potassium chloride ER 10 mEq Tablet PO (08:06)
[2021-06-02] MEDS: ARIPiprazole 2 mg Tablet PO (08:06)
[2021-06-02] MEDS: levothyroxine 100 mcg Tablet PO (08:06)
[2021-06-02] MEDS: metoprolol succinate ER (24 HR) 50 mg Tablet 100 MG PO (08:06)
[2021-06-02] MEDS: rivaroxaban 10 mg Tablet 20 MG PO (08:06)
[2021-06-02] MEDS: pantoprazole DR 40 mg Tablet PO (08:06)
[2021-06-02] MEDS: FUROsemide 40 mg Tablet PO (08:06)
[2021-06-02] MEDS: atorvastatin 40 mg Tablet 20 MG PO (08:07)
[2021-06-02] MEDS: amlodipine 5 mg Tablet 2.5 MG PO (08:07)
--- NOTE | 2021-06-02 09:25 | PC.SOCIAL ---
IMM UPDATED IMM dated and initialed and copy given to patient
[2021-06-02 09:33] LABS: Quest SARS-CoV-2 RNA NOT DETECTED (NOT DETECTED)
[2021-06-02] MEDS: digoxin 125 mcg Tablet PO (10:35)
--- NOTE | 2021-06-02 10:57 | P.DS_ITS ---
Discharge Providers Date of Admission: 05/30/21 19:46 Date of Discharge: June 02, 2021 Attending Provider at Admission: Chong Ellis Attending Provider at Discharge: Chong Ellis Primary Care Provider: Poonam Cavazos DO Diagnoses at Discharge Discharge Diagnosis (1) Atrial fibrillation with rapid ventricular response: Status: Acute (2) Uncontrolled hypertension: Status: Acute (3) Diarrhea: Status: Acute (4) Anemia: Status: Acute Reason for Visit Reason for Visit: HTN/ AFIB/ LOW O2 SATS Hospital Course Hospital Course Please see patient's H&P, consult notes, progress notes for more details. Discharge diagnosis and problem list 65 year old female with past medical history of atrial fibrillation, hypertensio n, CHF, dyslipidemia, GERD, hypothyroidism, diabetes, mild cognitive impairment, anxiety who is presenting to emergency room with complaints of diarrhea. A. fib and RVR. Off diltiazem drip. Rate controlled now. Home medications resumed. Feeling much better. Eager to go home. Denies any active complaints today. Will need to continue outpatient follow-up with her primary night monitor after discharge. She is instructed to come back to emergency room if she develops any new or similar symptoms. She verbalized understanding and agreement. Diarrhea with associated mild dehydration. Not sure about the cause. Resolved. C. difficile negative.. No dehydration. History of CHF. No evidence of acute exacerbation. We will continue home medications. Uncontrolled hypertension. Improved control. Continue current management. Further adjustments per primary care team. CKD. Stable renal function. Continue monitoring. Anemia. Stable. Chronic. Continue monitoring. Nasal congestion and recent exposure to COVID-19. Covid testing was negative. She will continue her home medications. Currently improving symptoms. No chest pain, shortness of breath, cough, fever or chills DVT prophylaxis. We will continue her home Xarelto. Dyslipidemia. Per primary care team. Discharge Data Data Completed and Pending: Completed Studies During Hospitalization Category Date Time Status XR chest 1V alec ble [id number] Stat Exams 05/30/21 12:18 Completed Labs from last 24 hours 06/02/21 06/02/21 06/02/21 06:28 04:55 04:55 WBC 8.1 RBC 4.35 Hgb 12.1 Hct 39.2 MCV 90.1 MCH 27.8 L MCHC 30.9 RDW 15.9 H Plt Count 206 MPV 10.3 Neut % (Auto) 67.2 Lymph % (Auto) 20.8 [place] % (Auto) 9.2 Eos % (Auto) 1.9 Baso % (Auto) 0.4 Neut # (Auto) 5.44 Lymph # (Auto) 1.7 [place] # (Auto) 0.7 Eos # (Auto) 0.2 Baso # (Auto) 0.0 Nucleated RBC % (a uto) 0 Nucleated RBCs # 0.0 Sodium 139 Potassium 4.4 Chloride 105 Carbon Dioxide 24 Anion Gap 14.4 BUN 19 Creatinine 0.8 GFR Calculation 72.0 L Glucose 100 POC Glucose 132 H Calcium 8.3 L Phosphorus 3.8 Albumin 3.4 L SARS-CoV-2 RNA (RT -PCR) 06/01/21 06/01/21 06/01/21 20:18 16:58 11:43 WBC RBC Hgb Hct MCV MCH MCHC RDW Plt Count MPV Neut % (Auto) Lymph % (Auto) [place] % (Auto) Eos % (Auto) Baso % (Auto) Neut # (Auto) Lymph # (Auto) [place] # (Auto) Eos # (Auto) Baso # (Auto) Nucleated RBC % (a uto) Nucleated RBCs # Sodium Potassium Chloride Carbon Dioxide Anion Gap BUN Creatinine GFR Calculation Glucose POC Glucose 143 H 101 136 H Calcium Phosphorus Albumin SARS-CoV-2 RNA (RT -PCR) 05/31/21 07:55 WBC RBC Hgb Hct MCV MCH MCHC RDW Plt Count MPV Neut % (Auto) Lymph % (Auto) [place] % (Auto) Eos % (Auto) Baso % (Auto) Neut # (Auto) Lymph # (Auto) [place] # (Auto) Eos # (Auto) Baso # (Auto) Nucleated RBC % (a uto) Nucleated RBCs # Sodium Potassium Chloride Carbon Dioxide Anion Gap BUN Creatinine GFR Calculation Glucose POC Glucose Calcium Phosphorus Albumin SARS-CoV-2 RNA (RT -PCR) Not detected Vitals: Last Vital Signs Temp 98 F 06/02/21 03:37 Pulse 95 06/02/21 10:35 Resp 22 H 06/02/21 03:37 BP 144/100 06/02/21 03:37 Pulse Ox 98 06/02/21 03:37 Discharge Plan Discharge Patient Disposition: Home Health Service Condition: Stable Prescriptions: New amlodipine 5 mg Tablet 2.5 mg PO DAILY Qty: 30 RF: 0 Continued digoxin [Digox] 125 mcg (0.125 mg) tablet 0.125 mcg PO DAILY RF: 0 potassium chloride 20 mEq tablet extended release 10 meq PO DAILY RF: 0 Xarelto 20 mg tablet 20 mg PO DAILY RF: 0 atorvastatin 20 mg tablet 20 mg PO DAILY RF: 0 omeprazole 20 mg capsule,delayed release(DR/EC) 20 mg PO BID RF: 0 acetaminophen 500 mg Tablet 1,000 mg PO Q6H PRN (Reason: Pain) RF: 0 levothyroxine 100 mcg Tablet 100 mcg PO DAILY RF: 0 Abilify 2 mg Tablet 2 mg PO DAILY RF: 0 Perforomist 20 mcg/2 mL Solution For Nebulization 2 ml INHALATION Q12H RF: 0 Insmed 1.5 billion cell Capsule 1 cap PO DAILY RF: 0 Lasix 40 mg Tablet 40 mg PO DAILY RF: 0 cetirizine 10 mg Tablet 10 mg PO DAILY RF: 0 metoprolol succinate 50 mg Tablet Extended Release 24 Hr 100 mg PO DAILY RF: 0 albuterol sulfate 90 mcg/actuation Hfa Aerosol Inhaler 2 puff INHALATION Q6H PRN (Reason: Shortness Of Breath) RF: 0 fluticasone propionate 50 mcg/actuation Caroleen,Suspension 2 spray INTRANASAL DAILY RF: 0 diclofenac sodium 1 % Gel 2 g TOPICAL . DIRECTED RF: 0 Discharge Orders: Discharge Order (Routine); Ordered 06/02/21 Ordered By: Chong Ellis Other Ambulatory Orders: Basic Metabolic Panel (Routine) Timeframe: 1 Week Facility: [facility] - Location: Lab - Main Lab Ordered By: Chong Ellis Complete Blood Count w/Auto (Routine) Timeframe: 1 Week Location: Determined by Patient Ordered By: Chong Ellis Referrals: Poonam Cavazos DO [Primary Care Provider] - 7-10 days Pamela Rehman MD [Physician] - 2 weeks Discharge Diet: Cardiac Discharge Activity: Increase activity as tolerated Patient Instructions: A-fib (Atrial Fibrillation) (DC), Opioid Safety Activity Restrictions/Additional Instructions: Please come back to to emergency room if you develop any chest pain, palpitations, diaphoresis, shortness of breath, dizziness or lightheadedness, weakness, falls, fever or chills, new diarrhea, nausea or vomiting, or any other new complaints. Discharge Attestations Time Spent in Discharge Care*: greater than 30 min Quality Metrics Clinical Quality Measures During this hospital stay, did patient experience: None Coding Level of Care Code Acute Chg FW DC note Diagnoses Atrial fibrillation with rapid ventricular response I48.91 Uncontrolled hypertension I10 Diarrhea R19.7 Anemia D64.9
[2021-06-02 11:38] LABS: Glucose Point of Care 113 mg/dL (70-110)
--- NOTE | 2021-06-02 12:49 | PC.OT ---
OT TREATMENT WITHHELD TODAY THE PATIENT IS SCHEDULED FOR DISCHARGE.
== END 2021-06-02 15:44 | disposition home health service (06) ==
LOC: ER 14:49 → CSU 19:01
PROVIDERS: Admitting Provider Internal Medicine; Emergency Provider Family Medicine; PCP Family Medicine; Visit Provider Internal Medicine
DX: I48.91 Unspecified atrial fibrillation (principal); R19.7 Diarrhea, unspecified; D64.9 Anemia, unspecified; E78.5 Hyperlipidemia, unspecified; K21.9 Gastro-esophageal reflux disease without esophagitis; E03.9 Hypothyroidism, unspecified; F41.9 Anxiety disorder, unspecified; E11.22 Type 2 diabetes mellitus with diabetic chronic kidney disease; I13.0 Hypertensive heart and chronic kidney disease with heart failure and stage 1 through stage 4 chronic kidney disease, or unspecified chronic kidney disease; N18.9 Chronic kidney disease, unspecified; I50.9 Heart failure, unspecified; J44.9 Chronic obstructive pulmonary disease, unspecified; E78.00 Pure hypercholesterolemia, unspecified; Z82.49 Family history of ischemic heart disease and other diseases of the circulatory system
CPT/HCPCS: 36415; 36416; 71045; 80053; 80069; 80162; 82550; 82962; 83735; 83880; 84100; 84443; 84484; 85025; 86140; 87493; 87635; 93005; 96365; 96366; 96375; 97116; 97161; 97165; 97535; 99291; G0378; J3490

== ENCOUNTER 2021-07-14 12:40 | Outpatient (CLI) | payer MEDICARE, OTHER, SELFPAY ==
--- NOTE | 2021-07-14 12:49 | US_ITS ---
WS: [id number] LEFT DIGITAL MAMMOGRAPHY WITH CAD CLINICAL INFORMATION: ABNORMAL MAMMOGRAM COMPARISON: May 24, 2021 TECHNIQUE: 3 views of the left breast were obtained. FINDINGS: Scattered fibroglandular densities of the left breast. Punctate and lucent center calcifications. Aga in seen is the 8 mm asymmetric density upper outer LEFT breast best seen on the cc view. This persist s on spot compression views. Ultrasound is pending. ULTRASOUND BREAST LEFT TECHNIQUE: Ultrasound left breast focused area of concern. CLINICAL INFORMATION: ABNORMAL MAMMOGRAM FINDINGS: Ultrasound LEFT breast at the 2 and 3:00 position 6cm from the nipple. At the 2:00 position, is a carlos id heterogeneous shadowing lesion measuring 6 x 6 x 6 mm, 6 cm from the nipple. This is taller than wide suspicious for neoplasm. Recommend further evaluation with ultrasound-guided biopsy. US/US breast LT limited* [id number] IMPRESSION: BI-RADS: 4-Suspicious Finding-Biopsy Should Be Considered FOLLOW UP: US Guided Biopsy Recommended Recommend further evaluation of the shadowing suspicious lesion at the 2:00 pos ition with ultrasound-guided biopsy.
== END 2021-07-14 12:41 | disposition home or self-care (01) ==
PROVIDERS: PCP Family Medicine; Visit Provider Family Medicine
DX: R92.8 Other abnormal and inconclusive findings on diagnostic imaging of breast (principal); N63.21 Unspecified lump in the left breast, upper outer quadrant
CPT/HCPCS: 76642; 77065

== ENCOUNTER 2021-08-05 11:26 | Outpatient (CLI) | payer MEDICARE, OTHER, SELFPAY ==
--- NOTE | 2021-08-05 11:33 | US_ITS ---
WS: [id number] ULTRASOUND-GUIDED LEFT BREAST BIOPSY HISTORY: ABNORMAL MAMMO OF L BREAST COMPARISON: 07/14/2021 and 05/24/2021 Procedure, risks and complications are explained to the patient. Medications are reviewed. Consent is obtained. The mass in the LEFT breast is localized with ultrasound. Mass localizes at 2:00, 6 cm from the nippl e. Skin is cleansed with ChloraPrep and anesthetized with 1% buffered lidocaine. Small dermatome is m anastacio. Under sterile conditions mass is biopsied with a 14-gauge Achieve needle. Multiple core biopsies are performed. Material placed in formalin and sent to pathology for review. No complications encoun tered. Breast tissue marker (Bard ultrasound enhanced ribbon): Single. Patient left the radiology suite with no complications. Patient is instructed to return to [facility] or [facility] with any concerns. US/[place] [id number] IMPRESSION: 1. Uncomplicated core needle biopsy LEFT breast mass at 2:00, 6 cm from the ni pple. PATHOLOGY: Invasive mammary carcinoma. Lymphovascular invasion identified. Deandre tional stains have been requested. Breast profile pending. RECOMMENDATION: Follow-up with breast surgeon and oncology.
[2021-08-15 14:13] LABS: Miscellaneous Test See Scanned Lab Rpt
== END 2021-08-05 11:27 | disposition home or self-care (01) ==
LOC: RAD 11:27
PROVIDERS: PCP Family Medicine; Visit Provider Family Medicine
DX: C50.412 Malignant neoplasm of upper-outer quadrant of left female breast (principal)
CPT/HCPCS: 19083; 88305; 88342; 88361; 88367; 88374

== ENCOUNTER → 2021-09-26 14:36 | Outpatient (BNVA) | payer MEDICARE, OTHER, SELFPAY | PROVIDERS: Visit Provider Internal Medicine Cardiovascular Disease | DX: I48.0 Paroxysmal atrial fibrillation (principal); E78.00 Pure hypercholesterolemia, unspecified; Z79.01 Long term (current) use of anticoagulants; C50.919 Malignant neoplasm of unspecified site of unspecified female breast; I13.0 Hypertensive heart and chronic kidney disease with heart failure and stage 1 through stage 4 chronic kidney disease, or unspecified chronic kidney disease; E11.22 Type 2 diabetes mellitus with diabetic chronic kidney disease; N18.9 Chronic kidney disease, unspecified; I50.9 Heart failure, unspecified | CPT/HCPCS: 99214 ==